=== PATIENT | female | born 1985 | race Caucasian/White ===

== ENCOUNTER 2019-11-29 08:40 | Emergency (ER) | payer MEDICAID, SELFPAY ==
[2019-11-29 08:49] VITALS: BP 133/74; PULSE 88; RESP 16; TEMP 36.8; O2SAT 100
--- NOTE | 2019-11-29 08:53 | ED_ITS ---
HPI - Female Genitourinary General Chief complaint: Abdominal Pain Stated complaint: abd pain,pos test Time Seen by Provider: 11/29/19 08:53 Source: patient Mode of arrival: ambulatory Limitations: no limitations History of Present Illness MD elicited complaint: pelvic pain Pertinent past history: other (reversal of tubal 5 months ago and now has pain told if this happened she needs to go to hospital to r/o ectopic) Onset (ago): day(s) (3) Location of symptoms: suprapubic Severity: moderate Female Urogenital Radiation: Suprapubic Quality of pain: cramping Consistency: constant Vaginal discharge: none Vaginal bleeding: none Urinary symptoms: Frequency Exacerbating factors: none Relieving factors: none Associated symptoms: abdominal pain and nausea Sexual activity: Yes Patient : Yes Possible : at home test positive Date of Last Menstrual Period: 11/02/19 Related Data : 4 Para: 4 Home Medications Medication Instructions Recorded Confirmed No Known Home Meds 11/29/19 11/29/19 Allergies Allergy/AdvReac Type Severity Reaction Status Date / Time No Known Allergies Allergy Mild NOT Verified 11/29/19 08:57 APPLICABLE Review of Systems Review of Systems: Constitutional : No Fever, No Chills ENT/Mouth : No sore throat, No Rhinorrhea Eyes: No Eye Pain, No Redness Cardiovascular : No Chest Pain, No SOB Respiratory : No Cough, No Sputum, No Wheezing Gastrointestinal : positive Nausea, No Vomiting, No Diarrhea, positive abdominal pain, Genitourinary : no irregular bleeding, No Dysuria, positive Urinary Frequency, positive pelvic pain Musculoskeletal : No Myalgias Skin : No rash Neuro : No Weakness, No Headache Psych : No Anxiety/Panic, No Depression Heme/Lymph: No bruising, No Lymphadenopathy Endocrine : No Polyuria, No Polydipsia All other systems reviewed and are negative PMFSH Past Medical History Surgical History (Updated 11/29/19 @ 08:54 by Spencer James) History of reversal of tubal ligation : 4 Para: 4 Date of Last Menstrual Period: 11/02/19 Social History Social History (Updated 11/29/19 @ 09:00 by Erendira Buckner DO) Alcohol intake: unknown Smoking Status: Never smoker Use of substances other than those prescribed or required for medical reasons: Unknown Advance Directives: No Advance Directives Information Provided: Yes Physical Exam Vital Signs: Vital Signs: Vital Signs Temp Pulse Resp BP Pulse Ox 11/29/19 11:37 74 18 136/83 11/29/19 10:20 85 16 141/79 H 100 11/29/19 08:49 98.3 F 88 16 133/74 100 Body Mass Index 20.0 Appearance: Alert. Oriented X3. No acute distress. Anxious Eyes: Pupils equal, round and reactive to light. ENT: Pharynx normal. Neck: Normal inspection. Neck supple. CVS: Normal heart rate and rhythm. Pulses normal. Respiratory: No respiratory distress. Breath sounds normal. Abdomen: Soft and very mild suprapubic ttp, no rebound or guarding Skin: Skin warm and dry. Normal skin color. Normal skin turgor. Extremities: No lower extremity edema. No calf ttp Neuro: Oriented X 3. No motor deficit. No sensory deficit. Course Reevaluation(s) Reevaluation #1: discussed with Dr. Vasquez follow up in 2 days for repeat quant and ectopic precautions, H/H stable, VS stable MDM - Female Genitourinary MDM Narrative Medical decision making narrative: 34 yo female just had LMP 11/01 who is s/p tubal reversal 5 months ago in [place] here with pain no bleeding concerned given recent faintly positive tests at home, worried she has ectopic at this time will need labs, US to evaluate for ectopic, IVF and tylenol, dispo per results and findings Lab Data Result diagrams: 11/29/19 09:07 11/29/19 09:07 Labs: Lab Results 11/29/19 11/29/19 11/29/19 Range/Units 09:07 09:07 09:07 WBC 6.5 (4.8-10.8) X10*3/uL RBC 4.25 (4.20-5.50) X10*6/uL Hgb 12.5 (12.0-16.0) g/dl Hct 37.9 (37-47) % MCV 89.2 (80-98) fL MCH 29.4 (27.0-33.0) pg MCHC 33.0 (31.0-35.0) g/dl RDW 12.8 (11.0-16.0) % Plt Count 232 (160-400) X10*3/uL MPV 9.2 L (9.4-12.3) fL Immature Gran % (Auto) 0.3 (0.0-0.4) % Neut % (Auto) 61.0 (45-73) % Lymph % (Auto) 29.4 (20-40) % [place] % (Auto) 8.1 (2-11) % Eos % (Auto) 0.9 (0-4) % Baso % (Auto) 0.3 (0-2) % Lymph # (Auto) 1.9 (1.2-4.9) X10*3/uL [place] # (Auto) 0.5 (0.1-1.2) X10*3/uL Eos # (Auto) 0.1 (0.0-0.4) X10*3/uL Baso # (Auto) 0.0 (0.0-0.2) X10*3/uL Abs Immat Gran (auto) 0.02 (0.00-0.03) X10*3/uL Absolute Neuts (auto) 4.0 (2.0-8.3) X10*3/uL Absolute Nucleated RBC 0.000 (0.0-0.012) X10*3/uL Nucleated RBC % (auto) 0.0 (0.0-0.2) /100WBC Hold Blue Top SEE NOTE Sodium 138 (135-145) mmol/L Potassium 3.8 (3.3-5.1) mmol/l Chloride 104 (96-108) mmol/L Carbon Dioxide 26 (22-29) mmol/L Anion Gap 12 (12-20) BUN 12 (9-16) mg/dL Creatinine 0.74 (0.5-1.4) mg/dL Estim Creat Clear Calc 93.8 Estimated GFR > 60 Random Glucose 95 (60-115) mg/dL Calcium 9.2 (8.4-10.2) mg/dL Magnesium 1.8 (1.6-2.6) mg/dL Total Bilirubin 1.0 (0.0-1.0) mg/dL Direct Bilirubin 0.3 (0.0-0.5) mg/dL AST 14 (5-31) U/L ALT 11 (0-31) U/L Alkaline Phosphatase 51 (39-117) U/L Total Protein 7.6 (6.5-8.0) g/dL Albumin 4.3 (3.5-5.0) g/dL Lipase 10 (8-78) U/L Beta HCG, Quant 46 mIU/mL Urine Color Urine Appearance Urine pH (5.0-8.0) Ur Specific [place] (1.005-1.025) Urine Protein (NEG-TRACE) MG/DL Urine Glucose (UA) (NEG) MG/DL Urine Ketones (NEG) MG/DL Urine Blood (NEG) Urine Nitrite (NEG) Ur Leukocyte Esterase (NEG) Urine RBC (0) /HPF Urine WBC (0-4) /HPF Ur Squamous Epith Cells /LPF Urine Bacteria /LPF Urine Mucus /LPF 11/29/19 Range/Units 09:23 WBC (4.8-10.8) X10*3/uL RBC (4.20-5.50) X10*6/uL Hgb (12.0-16.0) g/dl Hct (37-47) % MCV (80-98) fL MCH (27.0-33.0) pg MCHC (31.0-35.0) g/dl RDW (11.0-16.0) % Plt Count (160-400) X10*3/uL MPV (9.4-12.3) fL Immature Gran % (Auto) (0.0-0.4) % Neut % (Auto) (45-73) % Lymph % (Auto) (20-40) % [place] % (Auto) (2-11) % Eos % (Auto) (0-4) % Baso % (Auto) (0-2) % Lymph # (Auto) (1.2-4.9) X10*3/uL [place] # (Auto) (0.1-1.2) X10*3/uL Eos # (Auto) (0.0-0.4) X10*3/uL Baso # (Auto) (0.0-0.2) X10*3/uL Abs Immat Gran (auto) (0.00-0.03) X10*3/uL Absolute Neuts (auto) (2.0-8.3) X10*3/uL Absolute Nucleated RBC (0.0-0.012) X10*3/uL Nucleated RBC % (auto) (0.0-0.2) /100WBC Hold Blue Top Sodium (135-145) mmol/L Potassium (3.3-5.1) mmol/l Chloride (96-108) mmol/L Carbon Dioxide (22-29) mmol/L Anion Gap (12-20) BUN (9-16) mg/dL Creatinine (0.5-1.4) mg/dL Estim Creat Clear Calc Estimated GFR Random Glucose (60-115) mg/dL Calcium (8.4-10.2) mg/dL Magnesium (1.6-2.6) mg/dL Total Bilirubin (0.0-1.0) mg/dL Direct Bilirubin (0.0-0.5) mg/dL AST (5-31) U/L ALT (0-31) U/L Alkaline Phosphatase (39-117) U/L Total Protein (6.5-8.0) g/dL Albumin (3.5-5.0) g/dL Lipase (8-78) U/L Beta HCG, Quant mIU/mL Urine Color YELLOW Urine Appearance CLEAR Urine pH 6.0 (5.0-8.0) Ur Specific [place] 1.025 (1.005-1.025) Urine Protein NEG (NEG-TRACE) MG/DL Urine Glucose (UA) NEG (NEG) MG/DL Urine Ketones NEG (NEG) MG/DL Urine Blood 2+ H (NEG) Urine Nitrite NEG (NEG) Ur Leukocyte Esterase NEG (NEG) Urine RBC 5-9 H (0) /HPF Urine WBC 0 (0-4) /HPF Ur Squamous Epith Cells 2+ /LPF Urine Bacteria 1+ /LPF Urine Mucus 2+ /LPF Discharge Plan Discharge Clinical Impression: Abdominal pain affecting Ectopic Qualifiers: Location of ectopic : unspecified location Intrauterine status: unspecified Qualified Code(s): O00.90 - Unspecified ectopic without intrauterine Ovarian cyst Qualifiers: Laterality: right Qualified Code(s): N83.201 - Unspecified ovarian cyst, right side Patient Disposition: Home, Self-Care Instructions: Ectopic (DC), Ovarian Cyst (ED), Abdominal Pain in (ED) Additional Instructions: significant bleeding, increased pain, fainting dizziness, return immediately Prescriptions: No Action No Known Home Meds RF: 0 Referrals: Natalie Vasquez MD [Physician] - 2 days (repeat hcg testing) Stand Alone Forms: Work/School Release
--- NOTE | 2019-11-29 08:53 | US_ITS ---
EXAMINATION: ULTRASOUND OB CLINICAL INFORMATION: Positive test. Post tubal ligation reversal 5 months ago. HCG 46. COMPARISON: None TECHNIQUE: Transabdominal and transvaginal first trimester OB ultrasound. Transvaginal exam was performed for better visualization of the uterus and ovaries. FINDINGS: Uterus is normal in size and shape measures 10.8 x 4.9 x 4.8 cm in dimension. No focal uterine lesion is seen. Endometrial thickness is normal measuring 1.3 cm. There are nabothian cysts in the cervix. No intrauterine is seen. The right ovary measures 4.1 x 2.1 x 1.9 cm and contains a 2 x 1.3 x 1.2 cm complex cyst, question representing a corpus luteum. The left ovary is normal and measures 3.4 x 2.1 x 2.1 cm. There is a small amount of fluid in the pelvis. IMPRESSION: No intrauterine seen. This may be due to early gestational age. Small 2 x 1.3 x 1.2 cm complex right ovarian cyst probably representing a corpus luteum. Correlation with quantitative beta hCG and follow-up ultrasound exam to ensure development of intrauterine is recommended.
--- NOTE | 2019-11-29 09:09 | PC.NURSE ---
TRIAGED AT BEDSIDE, SEEN BY DR RAMIREZ, IV EST 20 G L AC. BLOODS DRAWN FROM IV ANS SENT TO LAB. PT UNABLE TO GIVE URINE AT THIS TIME
[2019-11-29 09:16] LABS: MANUAL DIFF FLAG NO
[2019-11-29] MEDS: 0.9 % Sodium Chloride 1,000 ML 999 ML IVCONT (09:18)
[2019-11-29] MEDS: Acetaminophen 325 MG TABLET 650 MG PO (09:18)
[2019-11-29 09:22] LABS: Basophils Percent Auto 0.3 % (0-2); Eosinophils Absolute Auto 0.1 X10*3/uL (0.0-0.4); Eosinophils Percent Auto 0.9 % (0-4); Hematocrit 37.9 % (37-47); Hemoglobin 12.5 g/dl (12.0-16.0); Imm Gran Abs Auto 0.02 X10*3/uL (0.00-0.03); Imm Gran Pct Auto 0.3 % (0.0-0.4); Lymphocytes Absolute Auto 1.9 X10*3/uL (1.2-4.9); Lymphocytes Percent Auto 29.4 % (20-40); Mean Corpuscular Hemoglobin 29.4 pg (27.0-33.0); Mean Corpuscular Volume 89.2 fL (80-98); Mean Platelet Volume 9.2 fL (9.4-12.3); Monocytes Absolute Auto 0.5 X10*3/uL (0.1-1.2); Monocytes Percent Auto 8.1 % (2-11); Platelet Count 232 X10*3/uL (160-400); Red Blood Count 4.25 X10*6/uL (4.20-5.50); Red Cell Distribution Width 12.8 % (11.0-16.0); White Blood Count 6.5 X10*3/uL (4.8-10.8)
[2019-11-29 09:39] LABS: Alanine Aminotransferase 11 U/L (0-31); Albumin Level 4.3 g/dL (3.5-5.0); Alkaline Phosphatase 51 U/L (39-117); Anion Gap 12 (12-20); Aspartate Amino Transferase 14 U/L (5-31); Bilirubin Direct 0.3 mg/dL (0.0-0.5); Blood Urea Nitrogen 12 mg/dL (9-16); Calcium 9.2 mg/dL (8.4-10.2); Carbon Dioxide 26 mmol/L (22-29); Chloride 104 mmol/L (96-108); Creatinine Clr Calc Pharmacy 93.8; Estimated Glomerular Filt Rate > 60; Glucose Random 95 mg/dL (60-115); Lipase 10 U/L (8-78); Magnesium 1.8 mg/dL (1.6-2.6); Potassium 3.8 mmol/l (3.3-5.1); Sodium 138 mmol/L (135-145); Total Protein 7.6 g/dL (6.5-8.0)
[2019-11-29 09:42] LABS: Glucose Urine UA NEG (NEG); Leukocyte Esterase Urine NEG (NEG); Nitrite Urine NEG (NEG); Specific Gravity - Urine 1.025 (1.005-1.025); Urine Blood 2+ (NEG); Urine Ketones NEG (NEG); Urine Protein NEG (NEG-TRACE)
[2019-11-29 09:44] LABS: Appearance Urine CLEAR; Color Urine YELLOW
[2019-11-29 09:46] LABS: HCG Quantitative 46 mIU/mL
[2019-11-29 09:52] LABS: Bacteria Urine 1+ /LPF; Mucus Urine 2+ /LPF; Squamous Epithelial Cell Urine 2+ /LPF; WBC Urine 0 /HPF (0-4)
[2019-11-29 10:20] VITALS: BP 141/79; PULSE 85; RESP 16; O2SAT 100
[2019-11-29 11:37] VITALS: BP 136/83; PULSE 74; RESP 18
[2019-11-29 12:21] VITALS: BP 131/82; PULSE 75
== END 2019-11-29 12:25 | disposition home or self-care (01) ==
PROVIDERS: Emergency Provider Emergency Medicine; PCP Nurse Practitioner Family
DX: N83.201 Unspecified ovarian cyst, right side (principal); R10.2 Pelvic and perineal pain
CPT/HCPCS: 36415; 76801; 76817; 80048; 80076; 81001; 83690; 83735; 84702; 85025; 96360; 99284

== ENCOUNTER 2019-11-30 09:30 | Outpatient (REF) | payer MEDICAID, SELFPAY ==
[2019-11-30 10:45] LABS: HCG Quantitative 95 mIU/mL
== END 2019-11-30 09:31 | disposition home or self-care (01) ==
LOC: HO.LAB 09:30
PROVIDERS: PCP Nurse Practitioner Family; Visit Provider Obstetrics & Gynecology
DX: O36.80X0 Pregnancy with inconclusive fetal viability, not applicable or unspecified (principal)
CPT/HCPCS: 84702

== ENCOUNTER → 2019-12-01 10:11 | Outpatient (BNVA) | payer MEDICAID, SELFPAY | PROVIDERS: PCP Nurse Practitioner Family; Visit Provider Obstetrics & Gynecology | DX: O36.80X0 Pregnancy with inconclusive fetal viability, not applicable or unspecified (principal) | CPT/HCPCS: 99213 ==

== ENCOUNTER 2020-01-09 18:44 | Emergency (ER) | payer MEDICAID, SELFPAY ==
--- NOTE | 2020-01-09 19:27 | ED_ITS ---
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 MD elicited complaint: abdominal pain Pertinent past history: none Onset (ago): day(s) (1) Pain Consistency: intermittent Location: suprapubic Severity: mild Quality: cramping Radiation: none Exacerbating factors: nothing Relieving factors: nothing Related Data Home Medications Medication Instructions Recorded Confirmed No Known Home Meds 11/29/19 11/29/19 Allergies Allergy/AdvReac Type Severity Reaction Status Date / Time No Known Allergies Allergy Mild NOT Verified 11/29/19 08:57 APPLICABLE Review of Systems Review of Systems REVIEW OF SYSTEMS: Pertinent positives and negatives are stated above in the history. GEN: no fevers, chills, fatigue HEENT: no nasal congestion, sore throat, ear pain NEURO: no headache, dizziness, focal weakness PULM: no cough, shortness of breath CV: no chest pain, palpitations, LE edema ABD: no nausea, vomiting, diarrhea : no dysuria, urgency, frequency SKIN: no rash ROS otherwise negative x 10 Physical Exam Vital Signs: Vital Signs: Last Vital Signs Temp 98.9 F 01/09/20 20:56 Pulse 72 01/09/20 20:56 Resp 18 01/09/20 20:56 BP 106/64 01/09/20 20:56 Pulse Ox 99 01/09/20 20:56 Body Mass Index 21.2 Appearance: Alert. Oriented X3. No acute distress. Eyes: Pupils equal, round and reactive to light. ENT: Pharynx normal. Neck: Normal inspection. Neck supple. CVS: Normal heart rate and rhythm. Pulses normal. Respiratory: No respiratory distress. Breath sounds normal. Abdomen: Soft and Mild tenderness suprapubic area no rebound tenderness or guarding. Skin: Skin warm and dry. Normal skin color. Normal skin turgor. Extremities: No lower extremity edema. Good range of movement Neuro: Oriented X 3. No motor deficit. No sensory deficit. MDM - Abdominal Pain MDM Narrative Medical decision making narrative: patient 10 weeks with slight spotting hCG level was appropriate to gestation age no more bleeding in the ER patient just had a sonogram done 2 weeks ago which showed IUP patient not in any distress. Patient advised to follow-up with her OB in 2 days to repeat her hCG level or report to the ER if increased vaginal bleeding Medical Records Attestation: I reviewed the patient's medical records. Lab Data Attestation: I reviewed the patient's lab results. Labs: Lab Results 01/09/20 01/09/20 Range/Units 20:21 20:21 Beta HCG, Quant [id number] mIU/mL Urine Color YELLOW Urine Appearance CLEAR Urine pH 7.0 (5.0-8.0) Ur Specific [place] 1.020 (1.005-1.025) Urine Protein NEG (NEG-TRACE) MG/DL Urine Glucose (UA) NEG (NEG) MG/DL Urine Ketones NEG (NEG) MG/DL Urine Blood TRACE (NEG) Urine Nitrite NEG (NEG) Ur Leukocyte Esterase NEG (NEG) Urine RBC 0-2 (0) /HPF Urine WBC 0-2 (0-4) /HPF Ur Squamous Epith Cells TRACE /LPF Amorphous Sediment 1+ /LPF Urine Bacteria NONE /LPF Discharge Plan Discharge Clinical Impression: Threatened in first trimester Patient Disposition: Home, Self-Care Instructions: Threatened Miscarriage (ED) Additional Instructions: follow-up with your field pipe lines supervisor in 2 days . Report to the ER if increased vaginal bleeding or pain Prescriptions: No Action No Known Home Meds RF: 0 Interventions: ED Discharge Assessment Last Done: 01/09/20 22:16 Discharge Date/Time: 01/09/20 22:18 [facility] Past Medical History Surgical History History of reversal of tubal ligation Family History Family History Maternal Grandmother Diabetes Father Asthma Mother HTN (hypertension) Social History Social History Alcohol intake: never Smoking Status: Never smoker Use of substances other than those prescribed or required for medical reasons: No Advance Directives: No
[2020-01-09 19:34] VITALS: BP 129/76; PULSE 73; RESP 16; TEMP 36.3; O2SAT 100; BMI 21.2
[2020-01-09 20:30] LABS: Glucose Urine UA NEG (NEG); Leukocyte Esterase Urine NEG (NEG); Nitrite Urine NEG (NEG); Urine Blood TRACE (NEG); Urine Ketones NEG (NEG); Urine Protein NEG (NEG-TRACE)
[2020-01-09 20:31] LABS: Appearance Urine CLEAR; Color Urine YELLOW
[2020-01-09 20:36] LABS: Amorphous Sediment Urine 1+ /LPF; RBC Urine 0-2 /HPF (0); Squamous Epithelial Cell Urine TRACE /LPF; WBC Urine 0-2 /HPF (0-4)
[2020-01-09 20:56] VITALS: BP 106/64; PULSE 72; RESP 18; TEMP 37.2; O2SAT 99
[2020-01-09] MEDS: Acetaminophen 325 MG TABLET 650 MG PO (21:23)
== END 2020-01-09 22:18 | disposition home or self-care (01) ==
PROVIDERS: Emergency Provider Internal Medicine; PCP Nurse Practitioner Family
DX: O20.0 Threatened abortion (principal); Z3A.10 10 weeks gestation of pregnancy
CPT/HCPCS: 81001; 84702; 99283; 99284

== ENCOUNTER 2020-12-20 13:01 | Outpatient (REF) | payer MEDICAID, SELFPAY ==
--- NOTE | ~2020-12-20 | CT_ITS ---
EXAMINATION: CT HEAD WITHOUT CONTRAST CLINICAL INFORMATION: Headaches COMPARISON: None TECHNIQUE: Contiguous axial imaging was performed from the skull base to vertex without intravenous administration of contrast. This CT examination was performed using dose optimization techniques as appropriate, variously including the following: *Automated exposure control *Adjustment of mA and/or kV according to patient size (this includes techniques or standardized protocols for targeted exams where dose is matched to indication/reason for exam; i.e. extremities or head) *Use of iterative reconstruction technique DLP: 681 mGy-cm FINDINGS: There is no evidence of acute intracranial hemorrhage or territorial infarction. No abnormal mass effect or midline shift is seen. Jain to white matter differentiation is well preserved. No extra-axial fluid collections are identified. The ventricles are normal in size. There is no abnormal attenuation within the brain parenchyma. The osseous structures and soft tissues are normal. The mastoid air cells and visualized portions of the paranasal sinuses are well aerated. CT/CT head/brain wo con IMPRESSION: No acute intracranial pathology. Normal CT imaging appearance of the brain.
== END 2020-12-20 13:02 | disposition home or self-care (01) ==
LOC: HO.CT 13:01
PROVIDERS: PCP Nurse Practitioner; Visit Provider Emergency Medicine
DX: R03.0 Elevated blood-pressure reading, without diagnosis of hypertension (principal); R20.0 Anesthesia of skin
CPT/HCPCS: 70450

== ENCOUNTER 2022-09-12 11:58 | Outpatient (REF) | payer MEDICAID, SELFPAY ==
[2022-09-12 13:22] LABS: MANUAL DIFF FLAG NO
[2022-09-12 13:37] LABS: Basophils Percent Auto 0.6 % (0-2); Eosinophils Absolute Auto 0.1 X10*3/uL (0.0-0.4); Eosinophils Percent Auto 2.1 % (0-4); Hematocrit 29.5 % (37.0-47.0); Hemoglobin 8.6 g/dl (12.0-16.0); Imm Gran Abs Auto 0.01 X10*3/uL (0.00-0.03); Imm Gran Pct Auto 0.2 % (0.0-0.4); Lymphocytes Percent Auto 36.8 % (20-40); Mean Corpuscular HGB Conc 29.2 g/dl (31.0-35.0); Mean Corpuscular Hemoglobin 23.2 pg (27.0-33.0); Mean Corpuscular Volume 79.5 fL (80.0-98.0); Mean Platelet Volume 9.3 fL (9.4-12.3); Monocytes Absolute Auto 0.5 X10*3/uL (0.1-1.2); Monocytes Percent Auto 9.6 % (2-11); Neutrophils Absolute Auto 2.7 x10*3/uL (2.0-8.3); Neutrophils Percent Auto 50.7 % (45-73); Platelet Count 362 X10*3/uL (160-400); Red Blood Count 3.71 X10*6/uL (4.20-5.50); Red Cell Distribution Width 16.3 % (11.0-16.0); White Blood Count 5.3 X10*3/uL (4.8-10.8)
[2022-09-12 14:43] LABS: Cholesterol 178 mg/dL; HDL Cholesterol 52 mg/dL; LDL Cholesterol Calculated 98 mg/dl; Triglycerides 143 mg/dL
== END 2022-09-12 11:59 | disposition home or self-care (01) ==
LOC: HO.HHCL 11:58
PROVIDERS: Visit Provider Nurse Practitioner Family
DX: Z00.00 Encounter for general adult medical examination without abnormal findings (principal)
CPT/HCPCS: 36415; 80061; 85025

== ENCOUNTER 2022-10-22 09:40 | Outpatient (REF) | payer MEDICAID, SELFPAY ==
[2022-10-22 12:40] LABS: Iron 21 mcg/dL (30-160); Percent Iron Saturation 6 % (15-50); Total Iron Binding Capacity 335 mcg/dL (228-428); Unsaturated Iron Binding 314 ug/dL
[2022-10-22 13:06] LABS: Ferritin 15 ng/mL (10-122)
== END 2022-10-22 09:41 | disposition home or self-care (01) ==
LOC: HO.HHCL 09:40
PROVIDERS: Visit Provider Nurse Practitioner Family
DX: E61.1 Iron deficiency (principal)
CPT/HCPCS: 36415; 82728; 83540

== ENCOUNTER 2023-02-20 10:28 | Outpatient (REF) | payer MEDICAID, SELFPAY | END 2023-02-20 10:29 | disposition home or self-care (01) | LOC: HO.HHCL 10:28 | PROVIDERS: Visit Provider Nurse Practitioner Family | DX: D50.8 Other iron deficiency anemias (principal) | CPT/HCPCS: 36415; 83540; 85025 ==

== ENCOUNTER 2023-05-09 23:09 | Emergency (ER) | payer MEDICAID, SELFPAY ==
[2023-05-09 23:36] VITALS: BP 125/75; PULSE 77; RESP 18; TEMP 36.8; O2SAT 97; BMI 22.8
--- NOTE | 2023-05-09 23:50 | MHC.EDTECH ---
Sars/flu/rsv and strep obtained and sent to lab.
[2023-05-09 23:55] LABS: IDNOW Serial# 08D9AD1C; Strep A Nucleic Acid Negative (Negative)
[2023-05-09 23:59] VITALS: BP 120/57; PULSE 74; RESP 14; TEMP 36.9; O2SAT 97
[2023-05-10 00:18] LABS: Influenza A PCR POSITIVE (Negative); Influenza B PCR NEGATIVE (Negative); Resp Syncy Virus RNA Qual PCR NEGATIVE (Negative); SARS COV2 PCR INHOUSE NEGATIVE (Negative)
--- NOTE | 2023-05-10 00:26 | ED_ITS ---
HPI - URI/Sore Throat General Chief Complaint: Upper Respiratory Symptoms Stated Complaint: flu like Time Seen by Provider: 05/10/23 00:03 Source: patient Mode of arrival: ambulatory Limitations: no limitations History of Present Illness HPI Narrative: Patient comes to the emergency room complaining of 3 days of sore throat, nausea, chills. Patient states that she has 2 children at home with the same symptoms, both have strep and influenza. Patient denies chest pain or shortness of breath. Related Data Previous Rx's Medication Instructions Recorded ibuprofen 600 mg tablet 600 mg PO QID PRN fever or pain 05/10/23 #20 tabs oseltamivir 75 mg capsule (Tamiflu) 75 mg PO Q12H 5 days #10 caps 05/10/23 Allergies Allergy/AdvReac Type Severity Reaction Status Date / Time No Known Allergies Allergy Mild NOT Verified 11/29/19 08:57 APPLICABLE Review of Systems Review of Systems: Constitutional : No Weight loss, complaining of chills, No Night Sweats, No Fatigue, No Malaise ENT/Mouth : No Hearing loss, No Ear Pain, No Nasal Congestion, No Sinus Pain, No Hoarseness, complaining of sore throat, No Rhinorrhea, No Swallowing Difficulty Eyes: No Eye Pain, No Swelling, No Redness, No Foreign Body, No Discharge, No Vision Changes Cardiovascular : No Chest Pain, No SOB, No Dyspnea on Exertion, No Orthopnea, No Edema, No Palpitations Respiratory : No Cough, No Sputum, No Wheezing, No Smoke Exposure, No Dyspnea Gastrointestinal : No Nausea, No Vomiting, No Diarrhea, No Constipation, No abdominal Pain, No Hematochezia, No Melena Genitourinary : no irregular bleeding, No Dysuria, No Urinary Frequency, No Hematuria, No Urinary Incontinence, No Urgency, No Flank Pain, No Urinary Flow Changes, No Hesitancy Musculoskeletal : No joint pain, No Myalgias, No Joint Swelling Skin : No Skin Lesions, No rash Neuro : No Weakness, No Numbness, No Paresthesias, No Loss of Consciousness, No Dizziness, No Headache Psych : No Anxiety/Panic, No Depression, No SI/HI/AH/VH, No Social Issues, Heme/Lymph: No Bruising, No Bleeding,No Lymphadenopathy Endocrine : No Polyuria, No Polydipsia, No Temperature Intolerance PMFSH Past Medical History Surgical History History of reversal of tubal ligation Family History Family History Maternal Grandmother Diabetes Father Asthma Mother HTN (hypertension) Social History Social History Alcohol intake: never Smoked in Last 30 Days: No Use of substances other than those prescribed or required for medical reasons: No Advance Directives: No Advance Directives Information Provided: No Physical Exam Vital Signs: Vital Signs: Last Vital Signs Temp 98.4 F 05/09/23 23:59 Pulse 74 05/09/23 23:59 Resp 14 05/09/23 23:59 BP 120/57 L 05/09/23 23:59 Pulse Ox 97 05/09/23 23:59 O2 Del Method Room Air 05/09/23 23:59 BMI result Body Mass Index 22.8 Const: Other: Appearance: Alert. Oriented X3. No acute distress. Eyes: Pupils equal, round and reactive to light. ENT: Erythematous oropharynx, no exudates, no abscess Neck: Normal inspection. Neck supple. No lymph nodes noted. No crepitus CVS: Normal heart rate and rhythm. Pulses normal. Normal S1 and S2 Respiratory: No respiratory distress. Breath sounds normal. No Wheezing. No rales Abdomen: Soft and nontender. No rigidity. No distention. Skin: Skin warm and dry. Normal skin color. Normal skin turgor. Extremities: No lower extremity edema. No Lacerations. No Rash Neuro: Oriented X 3. No motor deficit. No sensory deficit. Moving all extremities. No slurred speech. CN 2 through 12 grossly intact Psych: calm, cooperative, normal affect Medical Decision Making Medical Decision Making MDM Narrative: My interpretation of labs, positive for influenza A. -I discussed the labs with the patient, given the choice of treating at home symptomatically versus Tamiflu, patient would like to try Tamiflu. Patient aware that they may cause nausea vomiting diarrhea. Patient has throat pain, no trouble breathing or handling secretions. For symptomatic treatment, patient was given a dose of p.o. Decadron and viscous lidocaine Lab Data [facility] Lab Attestation statement: I reviewed the patient's lab results. Labs: Lab Results 03/23/24 Range/Units 23:36 Influenza Type A (PCR) POSITIVE A (Negative) Influenza Type B (PCR) NEGATIVE (Negative) RSV RNA Qual (PCR) NEGATIVE (Negative) SARS-CoV-2 RNA (RT-PCR) NEGATIVE (Negative) S. pyogenes GrpA FLOYD Negative (Negative) Discharge Plan Discharge Clinical Impression: Influenza, Acute viral pharyngitis Patient Disposition: Home, Self-Care Instructions: Influenza (ED) Additional Instructions: Please follow-up with your primary care physician tomorrow. If you have any worsening or new symptoms, please return to the emergency room or call 911 Prescriptions: New oseltamivir [Tamiflu] 75 mg capsule 75 mg PO Q12H 5 Days Qty: 10 0RF ibuprofen 600 mg tablet 600 mg PO QID PRN (Reason: fever or pain) Qty: 20 0RF
[2023-05-10] MEDS: Lidocaine HCl Viscous 2 % 15 ML SOLUTION MUCOUS MEM (00:51)
[2023-05-10] MEDS: dexAMETHasone sod phosphate 4 MG/ML VIAL 6 MG IVPUSH (00:51)
[2023-05-10 01:08] VITALS: BP 120/62; PULSE 70; RESP 18; TEMP 36.8; O2SAT 98
== END 2023-05-10 01:09 | disposition home or self-care (01) ==
PROVIDERS: Emergency Provider Emergency Medicine; PCP Nurse Practitioner Family
DX: J09.X2 Influenza due to identified novel influenza A virus with other respiratory manifestations (principal); Z11.52 Encounter for screening for COVID-19; Z20.828 Contact with and (suspected) exposure to other viral communicable diseases
CPT/HCPCS: 0241U; 87651; 99284; J1100

== ENCOUNTER 2024-05-11 09:31 | Outpatient (REF) | payer MEDICAID, SELFPAY ==
[2024-05-11 11:14] LABS: MANUAL DIFF FLAG NO
[2024-05-11 11:18] LABS: Basophils Percent Auto 0.4 % (0-2); Eosinophils Absolute Auto 0.1 X10*3/uL (0.0-0.4); Eosinophils Percent Auto 1.3 % (0-4); Hematocrit 36.2 % (37.0-47.0); Hemoglobin 12.1 g/dl (12.0-16.0); Imm Gran Abs Auto 0.01 X10*3/uL (0.00-0.03); Imm Gran Pct Auto 0.2 % (0.0-0.4); Lymphocytes Absolute Auto 1.6 X10*3/uL (1.2-4.9); Lymphocytes Percent Auto 33.6 % (20-40); Mean Corpuscular HGB Conc 33.4 g/dl (31.0-35.0); Mean Corpuscular Hemoglobin 28.5 pg (27.0-33.0); Mean Corpuscular Volume 85.4 fL (80.0-98.0); Mean Platelet Volume 9.4 fL (9.4-12.3); Monocytes Absolute Auto 0.4 X10*3/uL (0.1-1.2); Monocytes Percent Auto 7.9 % (2-11); Neutrophils Absolute Auto 2.7 x10*3/uL (2.0-8.3); Neutrophils Percent Auto 56.6 % (45-73); Platelet Count 283 X10*3/uL (160-400); Red Blood Count 4.24 X10*6/uL (4.20-5.50); Red Cell Distribution Width 13.4 % (11.0-16.0); White Blood Count 4.8 X10*3/uL (4.8-10.8)
[2024-05-11 11:53] LABS: HBS Num1 89.86 mIU/mL (0-7.99); HBc Num1 0.06 S/CO (0.00-0.79); HIV AB/AG Nonreactive (Nonreactive); HIV Num 1 0.07 S/CO (0.00-0.99); Hepatitis A Antibody IgM 0.23 Index (0-0.79); Hepatitis B Core Antibody Nonreactive (Nonreactive); Hepatitis B Surface Antigen Negative (Negative); ~HepC Num1 0.18 S/CO (0.00-0.79); ~Hepatitis A Antibody IgM Nonreactive (Nonreactive); ~Hepatitis B Surface Antibody REACTIVE (Nonreactive); ~Hepatitis C Antibody Nonreactive (Nonreactive)
[2024-05-11 11:54] LABS: Syphilis Screen Nonreactive (Nonreactive)
[2024-05-11 11:55] LABS: Alanine Aminotransferase 16 U/L (0-31); Albumin Level 4.2 g/dL (3.5-5.0); Alkaline Phosphatase 74 U/L (39-117); Anion Gap 8 (12-20); Aspartate Amino Transferase 17 U/L (5-31); Bilirubin Total 0.7 mg/dL (0.0-1.0); Blood Urea Nitrogen 13 mg/dL (9-16); Calcium 9.3 mg/dL (8.4-10.2); Carbon Dioxide 30 mmol/L (22-29); Chloride 106 mmol/L (96-108); Cholesterol 172 mg/dL (<200); Estimated Glomerular Filt Rate > 60; Glucose Random 80 mg/dL (60-115); HDL Cholesterol 52 mg/dL (>40); LDL Cholesterol Calculated 98 mg/dL (<100); Potassium 3.9 mmol/L (3.3-5.1); Sodium 140 mmol/L (135-145); Total Protein 7.6 g/dL (6.5-8.0); Triglycerides 114 mg/dL (<150)
[2024-05-11 11:56] LABS: TSH reflex Free T4 1.75 uIU/mL (0.32-4.0)
[2024-05-11 12:04] LABS: Vitamin B12 469 pg/mL (200-900)
[2024-05-11 13:34] LABS: Reflex LDLD? No
[2024-05-14 09:48] LABS: TS Negative Control Passed; TS Panel A 1; TS Panel B 0; TS Positive Control Passed; TSpotTB Negative (Negative)
== END 2024-05-11 09:32 | disposition home or self-care (01) ==
LOC: HO.HHCL 09:31
PROVIDERS: Visit Provider Internal Medicine
DX: Z00.00 Encounter for general adult medical examination without abnormal findings (principal); I10 Essential (primary) hypertension; G43.109 Migraine with aura, not intractable, without status migrainosus
CPT/HCPCS: 36415; 80053; 80061; 82607; 82746; 84443; 85025; 86481; 86704; 86706; 86709; 86780; 86803; 87340; 87389

== ENCOUNTER 2024-09-13 13:03 | Outpatient (REF) | payer MEDICAID, SELFPAY ==
--- OUTSIDE RECORDS SUMMARY | 2024-09-13 13:50 | XMS_ITS | Encounter Summary ---
Author Organization [employer] Address [address] [place] [address] Care Team Providers Care [employer] Setter Name Role Phone Caty GabrielP Primary Care Provider [phone] Katty Spears NP Primary Care Provider [phone] Encounter Details Date Type Department Care Team ([facility] st Contact Info) Description 01/12/2023 Abstract [facility] [address] [place] [address] Estrellita Lugo Social History Tobacco Use Types Packs/Day Years Used Date Smoking Tobacco: Never Passive Smoke Exposure: Never Smokeless Tobacco: Never Alcohol Use Standard Drinks/Week Comments Not Currently 0 (1 standard drink = 0.6 oz pur e alcohol) occasional / socially Depression Answer Date Recorded Patient Health Questionnaire-9 Score 9 09/12/2022 Housing Stability Answer Date Recorded What is your housing situation today? I have speedy mon 12/02/[address] you li ve. Do you have problems with any of the following? None of the above 12/02/2022 Food Insecurity Answer Date Recorded Within the past 12 months, y ou worried that your food would run out before you got money to buy more: Never True 12/02/2022 Within the past 12 months,th e food you bought just didn't last and you didn't have enough money to get more: Never True Transportation Answer Date Recorded In the past 12 months, has l ack of transportation kept you from medical appts, meetings, work or from getting things needed for daily living? No 12/02/2022 Utilities Answer Date Recorded In the past 12 months, has t he electric, gas, oil or water company threatened to shut off services in your home? No 12/02/2022 Depression Answer Date Recorded Patient Health Questionnaire-2 Score 0 01/02/2023 Comments No Sex and Gender Information Value Date Recorded Sex Assigned at Female 12/16/2021 10:14 AM EDT Legal Sex Female 10:14 AM EDT Gender Identity Female 12/16/2021 10:14 AM EDT Sexual Orientation Straight 12/16/2021 10 :14 AM EDT documented as of this encounter Plan of Treatment Upcoming Encounters Date Type Department Care Team (Late st Contact Info) Description 10/05/2024 1:30 PM EDT Office Visit [facility] [address], [place] [id number] Hiram Ruiz, DMD [address] [place] [address] 10/14/2024 10:15 AM EDT Office Visit [facility] [address] [place] [address] Katty Spears, JAMESON [address] [place] [address] 11/09/2024 10:00 AM EDT Office Visit [facility] [address] [place] [address] Sera Bates documented as of this encounter Procedures Procedure Name Priority Date/Time Associated Diagnosis Comments PAP/HPV Routine 09/21/2019 documented in this encounter Results * Pap Smear (09/21/2019) Pap Negative for intraephithelial lesion or malignancy Negative for intraephithelial lesion or malignancy, Other HPV Undetected Undetected, Indeterminate, Quantitative, Not Detected us Historical Provider HEALTH MAINTENANCE Final Result documented in this encounter Visit Diagnoses Not on filedocumented in this encounter Additional Health Concerns Assessment Noted Time PHQ-9 Depression Total Score: 9 09/13/19 23 11:23 AM EDT documented as of this encounter Care Teams [employer] Setter Relationship Specialty Start Date End Date Caty Gabriel FNP [address] [place] [address] PCP - General Family Medicine 06/03/22 10/19/23 Katty Spears NP [address] [place] [address] PCP - General Family Medicine 10/20/23 documented as of this encounter
--- OUTSIDE RECORDS SUMMARY | 2024-09-13 13:50 | XMS_ITS | Clinical Summary ---
Author Organization [facility] Address [address] [facility] [address] [place] [address] Phone Care Team Providers Care Tree Worker Name Role Phone Sunil Ly MD Primary Care Provider [phone] Allergies No known active allergies Medications ACNE TREATMENT, BENZOYL PEROX, 10 % gel APPLY A THIN LAYER TO THE AFFECTED AREA EVERY DAY 5 8 Active clindamycin (CLEOCIN T) 1 % lotion APPLY SMALL AMOUNT TO FACE IN THE MORNING 2 8 Active tretinoin (RETIN-A) 0.05 % cream APPLY A PEA SIZED AMOUNT TO THE FACE ALTERNATE WITH TRETINOIN 0.025 EVERY 2-3 NIGHTS 2 8 Active diclofenac sodium (VOLTAREN) 75 MG EC tablet Take 1 tablet (75 mg total) by mouth 2 (two) times a day. 60 tablet 2 8 Active magnesium citrate solution Drink half the bottle, wait 30-60 minutes if no bowel movement, drink the other half of the bottle. 295 mL 8 Active Active Problems Problem Noted Date Diagnosed Date Right hip pain 05/06/2017 Family History Medical History Relation Comments No Known Problems Brother No Known Problems Father No Known Problems Maternal Aunt No Known Problems Maternal Grandfather No Known Problems Maternal Grandmother No Known Problems Maternal Uncle No Known Problems Mother No Known Problems Paternal Aunt No Known Problems Paternal Grandfather No Known Problems Paternal Grandmother No Known Problems Paternal Uncle No Known Problems Sister Cancer Unspecified Diabetes Unspecified Infl. arthritis Unspecified Clotting disorder Neg Hx Collagen disease Neg Hx Depression Neg Hx Dislocations Neg Hx Gout Neg Hx Osteoporosis Neg Hx Scoliosis Neg Hx Relation Status Comments Brother Father Maternal Aunt Maternal Grandfather Maternal Grandmother Maternal Uncle Mother Paternal Aunt Paternal Grandfather Paternal Grandmother Paternal Uncle Sister Unspecified Social History Tobacco Use Types Packs/Day Years Used Date Smoking Tobacco: Never Smokeless Tobacco: Never Alcohol Use Standard Drinks/Week Comments Yes 0 (1 standard drink = 0.6 oz pur e alcohol) Education Answer Date Recorded Are you interested in more education? Not on chrissy e 06/13/2022 Are you concerned about learning? Not on file 06/13/2022 No 06/13/2022 No 06/13/2022 Digital Access Answer Date Recorded No 07/12/2022 No 07/12/2022 No 07/12/2022 Reliable internet access at home? Not on file 07/12/2022 Device with a working camera? Not on file Comments Unknown Sex and Gender Information Value Date Recorded Sex Assigned at Not on file Legal Sex Female 10:16 AM EST Gender Identity Not on file Sexual Orientation Not on file Last Filed Vital Signs Vital Sign Reading Time Taken Comments Blood Pressure 132/65 05/20/2017 8:24 PM EDT Pulse 71 05/20/2017 8:24 PM EDT Temperature 36.7 C (98.1 F) 05/20/2017 7:53 PM EDT Respiratory Rate 17 05/20/2017 8:24 PM EDT Oxygen Saturation 100% 05/20/2017 7:53 PM EDT Inhaled Oxygen Concentration - - Weight 54.4 kg (120 lb) 05/20/2017 6:33 PM EDT Height 165.1 cm (5' 5 ) 05/20/2017 6:33 PM EDT Body Mass Index 19.97 05/20/2017 6:33 PM EDT Plan of Treatment Health Maintenance Due Date Last Done Comments DEPRESSION SCREENING 1999 HEPATITIS C SCREENING 2005 HIV ONE-TIME SCREENING (18-6 5 YEARS) 2005 PAP SMEAR 2008 COVID-19 VACCINE (2023-2 5 season) 2023 09/25/2020, 09/05/2020 Adult Td,Tdap Booster 05/21/2030 05/21/2020 , 10/25/2014, 04/25/1999 HIB VACCINES Completed 03/30/1989 SMOKING STATUS SCREENING (On ce After 26 Yrs) Completed 05/11/2017 HEPATITIS A VACCINES Aged Out No long er eligible based on patient's age to complete this topic MENINGOCOCCAL VACCINES (ACWY) Aged Out No longer eligible based on patient's age to complete this topic MENINGOCOCCAL VACCINES (B) Aged Out N o longer eligible based on patient's age to complete this topic PNEUMOCOCCAL VACCINES (0-49 years) Aged Out No longer eligible b ased on patient's age to complete this topic Medical Devices Not on file Insurance [facility] C3 ACO [facility] C3 ACO [facility] [address] [place] [address] [place] [address] [place] [address] [place] [address] C3 ACO [facility] C3 ACO [facility] C3 ACO [facility] C3 ACO [facility] C3 ACO Care Teams Tree Worker Relationship Specialty Start Date End Date Sunil Ly MD [address] [place] [id number] PCP - General Pediatrics 05/20/17 Additional Source Comments The information contained in this document represents components of the legal health record. It is not the complete legal health record.[facility]
== END 2024-09-13 13:04 | disposition home or self-care (01) ==
LOC: HO.HHCLNP 13:03
PROVIDERS: Visit Provider Nurse Practitioner Family
DX: J02.9 Acute pharyngitis, unspecified (principal); R30.0 Dysuria
CPT/HCPCS: 87070; 87086

== ENCOUNTER 2024-11-17 11:31 | Outpatient (REF) | payer MEDICAID, SELFPAY ==
--- OUTSIDE RECORDS SUMMARY | 2024-11-16 15:20 | XMS_ITS | Encounter Summary ---
Author Organization [employer] Address [address] [facility] 7[address] [place] [address] Care Team Providers Care Fine Craft Artist Name Role Phone Katty Spears NP Primary Care Provider [phone] Reason for Referral * Consultation (Routine) - Closed Specialty Diagnoses / Procedures Referred By Contraad t Referred To Contact Pain Medicine Diagnoses Right leg numbness Acute bilateral low back pain without sciatica Amandeep Nassar MD [address] [place] [address] Phone: tel: fax: [facility] [address] [facility] [address] [place] [address] Phone: tel: fax: Referral ID Status Reason Start Date Expiration Date V isits Requested Visits Authorized [id number] Closed Specialty Services Required 11/17/2024 11/17/2025 6 6 Reason for Visit * Reason Comments Shortness of Breath left sided chest pain Left lower ext numbness Encounter Details Date Type Department Care Team (Late st Contact Info) Description 11/16/2024 3:20 PM EDT Office Visit [facility] [address] [place] [address] [phone] Amandeep Nassar MD [address] [place], [place] [phone] Chest pain, unspecified type (Primary Dx); Right leg numbness; Acute bilateral low back pain without sciatica; Essential hypertension Social History Tobacco Use Types Packs/Day Years Used Date Smoking Tobacco: Former Cigarettes Passive Smoke Exposure: Never Smokeless Tobacco: Never Tobacco Cessation:Counseling Given: Not Answered Alcohol Use Standard Drinks/Week Comments Not Currently 0 (1 standard drink = 0.6 oz pur e alcohol) occasional / socially Depression Answer Date Recorded Patient Health Questionnaire-9 Score 9 09/12/2022 Housing Stability Answer Date Recorded What is your housing situation today? I have speedy mon 09/13/[address] you li ve. Do you have problems with any of the following? None of the above 09/13/2024 Food Insecurity Answer Date Recorded Within the past 12 months, y ou worried that your food would run out before you got money to buy more: Never True 03/24/2024 Within the past 12 months,th e food you bought just didn't last and you didn't have enough money to get more: Never True 07/2024 Transportation Answer Date Recorded In the past 12 months, has l ack of transportation kept you from medical appts, meetings, work or from getting things needed for daily living? No 03/24/2024 Utilities Answer Date Recorded In the past 12 months, has t he electric, gas, oil or water company threatened to shut off services in your home? No 03/24/2024 Depression Answer Date Recorded Patient Health Questionnaire-2 Score 0 09/13/2024 Internet Access Answer Date Recorded Internet Access Q1 Yes 03/24/2024 Internet Access Q2 Not on file 03/24/2024 Comments No Sex and Gender Information Value Date Recorded Sex Assigned at Female 12/16/2021 10:14 AM EDT Legal Sex Female 10:14 AM EDT Gender Identity Female 12/16/2021 10:14 AM EDT Sexual Orientation Straight 12/16/2021 10 :14 AM EDT documented as of this encounter Last Filed Vital Signs Vital Sign Reading Time Taken Comments Blood Pressure 139/93 11/16/2024 3:53 PM EDT Pulse 68 11/16/2024 3:53 PM EDT Temperature 36.7 C (98 F) 11/16/2024 3:53 PM EDT Respiratory Rate 16 11/16/2024 3:53 PM EDT Oxygen Saturation 99% 11/16/2024 3:53 PM EDT Inhaled Oxygen Concentration - - Weight - - Height - - Body Mass Index - - documented in this encounter Progress Notes * Nadja Redman RN - 11/16/2024 3:20 PM EDT Assessment: Patient presents to Walk- In Center c/o Shortness of breath, Intermittent Left sided chest pain, Left lower ext numbness that started 1 month ago. No resp distress observed. Bilateral Upper and Lowerextremity strength. Symptoms have been present for month. Symptoms are intermittent Patient is taking (treatment/meds) none . VS as follows (if applicable): Temp 98.0 orally HR 68 regular rate and rhythm Resp 16 none BP 139/93 right Arm; Device: Automatic Cuff Size: regular O2 sat 98 % on room air Pain level: 5, Location: Left chest Clear to auscultation bilaterally, Location: throughout Allergies[1] Current Medications[2] Patient Active Problem List Diagnosis Date Noted Chronic frontal sinusitis 10/14/2024 Dysuria 09/13/2024 Other headache syndrome 09/13/2024 Visit for preventive health examination 04/08/2024 Dental calculus 10/30/2023 Strep pharyngitis 09/02/2023 Pharyngitis 09/02/2023 Symptomatic apical periodontitis 08/13/2023 Mixed anxiety depressive disorder 07/11/2022 Essential hypertension 12/18/2020 Migraine with aura 12/18/2020 Disease due to severe acute respiratory syndrome coronavirus 2 (SARS-CoV-2) 06/11/2020 Right hip pain 05/06/2017 Depressive disorder 04/27/2013 In Office Testing EKG obtained Plan of care: Report to Dr. Nassar Provider evaluation: Yes T Patient will wait in room for provider Nadja Redman RN [1] No Known Allergies [2] Current Outpatient Medications Medication Sig Dispense Refill acetaminophen (Tylenol) 500 MG tablet Take 1 tablet (500 mg) by mouth every 6 (six) hours if neededfor mild pain for up to 20 doses. 20 tablet 0 amitriptyline (Elavil) 10 MG tablet TAKE 1 TABLET BY MOUTH AT BEDTIME 30 tablet 0 diphenhydrAMINE (BENADryl) 25 MG tablet Take 1 tablet (25 mg) by mouth if needed at bedtime for itching. (Patient not taking: Reported on 10/05/2024) 30 tablet 0 fluticasone (Flonase) 50 MCG/ACT nasal spray SPRAY 1 TO 2 SPRAYS INTO EACH NOSTRIL EVERY DAY. SHAKEGENTLY. BEFORE FIRST USE, PRIME PUMP. AFTER USE, CLEAN TIP AND REPLACE CAP. 48 mL 0 loratadine (Claritin) 10 MG tablet TAKE 1 TABLET (10 MG) BY MOUTH ONCE PER DAY. 90 tablet 0 SUMAtriptan (Imitrex) 100 MG tablet Take 1 tablet (100 mg) by mouth 1 (one) time if needed for migraine for up to 108 doses. 9 tablet 11 No current facility-administered medications for this visit. * Amandeep Nassar MD - 11/16/2024 3:20 PM EDTAssociated Order(s): ECG 12 lead Post-Procedure Diagnose(s): Chest pain, unspecified type Subjective Patient ID: Becca Espinoza is a 39 y.o. female. Becca has 1 month h/o pain across lower back, worse with twisting torso. Tylenol and Motrin help a little. Heat helps. Denies fever, chills, abd. pain, urinary sx, bowel or bladder dysfunction, saddle anesthesia, extremity weakness, or radiation of pain. Also has had 1 month h/o numbness in anterior right leg, occurs only when sitting in chair or car. Also for many months has had a sharp pain in left anterior chest that comes and goes, worse with deep breath, worse at night, lasts about 3 minutes, occurs a few times/week. Pain is not present now. No cough, hemoptysis, or family h/o blood clots, extremity pain or swelling. 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 Patient Active Problem List Diagnosis Date Noted Chronic frontal sinusitis 10/14/2024 Dysuria 09/13/2024 Other headache syndrome 09/13/2024 Visit for preventive health examination 04/08/2024 Dental calculus 10/30/2023 Strep pharyngitis 09/02/2023 Pharyngitis 09/02/2023 Symptomatic apical periodontitis 08/13/2023 Mixed anxiety depressive disorder 07/11/2022 Essential hypertension 12/18/2020 Migraine with aura 12/18/2020 Disease due to severe acute respiratory syndrome coronavirus 2 (SARS-CoV-2) 06/11/2020 Right hip pain 05/06/2017 Depressive disorder 04/27/2013 The following portions of the chart were reviewed this encounter and updated as appropriate: Tobacco Allergies Meds Problems Med Hx Surg Hx Fam Hx Review of Systems Respiratory: Positive for shortness of breath. Cardiovascular: Positive for chest pain. Musculoskeletal: Positive for back pain. Neurological: Positive for numbness. Objective Physical Exam Constitutional: Appearance: Normal appearance. HENT: Right Ear: Tympanic membrane, ear canal and external ear normal. Left Ear: Tympanic membrane, ear canal and external ear normal. Nose: Nose normal. Mouth/Throat: Mouth: Mucous membranes are moist. Pharynx: Oropharynx is clear. Eyes: Conjunctiva/sclera: Conjunctivae normal. Pupils: Pupils are equal, round, and reactive to light. Cardiovascular: Rate and Rhythm: Normal rate and regular rhythm. Heart sounds: No murmur heard. Pulmonary: Effort: Pulmonary effort is normal. Breath sounds: Normal breath sounds. Musculoskeletal: General: Normal range of motion. Cervical back: No tenderness. Skin: Findings: No rash. Neurological: Mental Status: She is alert. Gait: Gait is intact. Psychiatric: Mood and Affect: Mood normal. Behavior: Behavior normal. ECG 12 lead Date/Time: 11/16/2024 5:11 PM Performed by: Amandeep Nassar MD Authorized by: Amandeep Nassar MD Previous ECG: Previous ECG: Unavailable Interpretation: Interpretation: normal Rate: ECG rate: 65 ECG rate assessment: normal Rhythm: Rhythm: sinus rhythm Ectopy: Ectopy: none QRS: QRS axis: Normal QRS intervals: Normal QRS conduction: normal ST segments: ST segments: Normal T waves: T waves: normal Q waves: Abnormal Q-waves: not present Assessment/Plan Diagnoses and all orders for this visit: Chest pain, unspecified type EKG: Normal. Has no chest pain now. Chest x-ray and D-dimer ordered. Will call patient with results. Return to clinic or go to ED if pain recurs and is not resolving. - ECG 12 lead - XR Chest 2 Views; Future - D-Dimer, Quantitative; Future Right leg numbness ? Radiculopathy. Refer to pain management due to numbness with low back pain. Continue current medication and heat. Acute bilateral low back pain without sciatica Lumbar spine x-rays ordered. Will call pty with report. As above. Essential hypertension Does not take any antihypertensives. Has home BP monitor. Reviewed BP parameters, given written BP log that includes BP parameters, to keep daily. RN BP visit scheduled. Patient will bring BP log with her to appointment. documented in this encounter Plan of Treatment Upcoming Encounters Date Type Department Care Team (Late st Contact Info) Description 11/23/2024 10:00 AM EDT Office Visit [facility] [address] [place] [address] Lynn Cha DDS [address] [place] [address] 11/25/2024 9:30 AM EDT Clinical Support [facility] [address] [place] [address] 05/10/2025 9:30 AM EDT Office Visit [facility] [address] [place] [address] Glenroy Kelley Scheduled Orders Name Type Priority Associated Diagnoses Orde r Schedule D-Dimer, Quantitative Lab Routine Chest pain, unspecified type Expected: 11/16/2024 (Approximate), Expires: 11/16/2025 XR Lumbar Spine 2-3 Views Imaging Routine Right leg numbness Acute bilateral low back pain without sciatica Expected: 11/16/2024, Expires: 11/16/2025 Scheduled Referrals Name Type Priority Associated Diagnoses Orde r Schedule Referral to Pain Medicine Outpatient Referral Routine Right leg numbness Acute bilateral low back pain without sciatica Expected: 11/16/2024 (Approximate), Expires: 11/16/2025 documented as of this encounter Procedures Procedure Name Priority Date/Time Associated Diagnosis Comments XR CHEST 2 VIEWS Routine 11/17/2024 11:5 7 AM EDT Chest pain, unspecified type ECG 12-LEAD Routine 11/16/2024 5:11 PM EDT Chest pain, unspecified type documented in this encounter Results * XR Chest 2 Views (11/17/2024 11:57 AM EDT) Anatomical Region Laterality Modality Chest Radiographic Melany ging 11/17/2024 11:5 7 AM EDT Narrative 11/17/2024 12:18 PM EDT [address] [address] XRay Report Signed Patient: Becca Espinoza MR#: [id number] : 1985 Acct:[id number] Age/Sex: 39 / F ADM Date: 11/17/24 Loc: [facility] Attending Dr: Amandeep Nassar MD Ordering Physician: AMANDEEP NASSAR MD Date of Service: 11/17/24 Procedure(s): XR chest 2V Accession Number(s): [id number] cc: AMANDEEP NASSAR MD; Katty Spears NP Reason for Exam: left anterior chest pain EXAMINATION: XR CHEST CLINICAL INFORMATION: left anterior chest pain COMPARISON: None available. TECHNIQUE: 2 views of the chest were obtained. FINDINGS: The cardiac, hilar, and mediastinal contours are normal. The lungs are clear bilaterally. There is no pneumothorax or pleural effusion. There is no focal osseous or soft tissue abnormality. XR/XR chest 2V IMPRESSION: Normal chest. Electronically signed by: El Mayes MD 11/17/2024 12:15 PM EDT Dictated By: El Mayes MD Signed By: <Electronically signed by El Mayes MD in OV> 11/17/24 1215 DD/ 1157 TD/TT: 11/17/24 1203 Vulcanizing Press Operator: Procedure Note Donotuseinterpreter, Image - 11/17/[address] [address] XRay Report Signed Patient: Kate EspinozaR#: [id number] : 1985Acct:[id number] Age/Sex: 39 / FADM Date: 11/17/24 Loc: [facility] Attending Dr: Amandeep Nassar MD Ordering Physician: AMANDEEP NASSAR MD Date of Service: 11/17/24 Procedure(s): XR chest 2V Accession Number(s): [id number] cc: AMANDEEP NASSAR MD; Katty Spears NP Reason for Exam: left anterior chest pain EXAMINATION: XR CHEST CLINICAL INFORMATION: left anterior chest pain COMPARISON: None available. TECHNIQUE: 2 views of the chest were obtained. FINDINGS: The cardiac, hilar, and mediastinal contours are normal. The lungs are clear bilaterally. There is no pneumothorax or pleural effusion. There is no focal osseous or soft tissue abnormality. XR/XR chest 2V IMPRESSION: Normal chest. Electronically signed by: El Mayes MD 11/17/2024 12:15 PM EDT RP Dictated By: El Mayes MD Signed By: <Electronically signed by El Mayes MD in OV> 11/17/24 1215 DD/ 1157 TD/TT: 11/17/24 1203 Vulcanizing Press Operator: Amandeep Nassar MD IMG XR PROCEDURES Edited Result - Final * ECG 12 lead (11/16/2024 5:11 PM EDT) Narrative Amandeep Nassar MD - 11/16/2024 5:11 PM EDT Amandeep Nassar MD 11/16/2024 5:55 PM ECG 12 lead Date/Time: 11/16/2024 5:11 PM Performed by: Amandeep Nassar MD Authorized by: Amandeep Nassar MD Previous ECG: Previous ECG: Unavailable Interpretation: Interpretation: normal Rate: ECG rate: 65 ECG rate assessment: normal Rhythm: Rhythm: sinus rhythm Ectopy: Ectopy: none QRS: QRS axis: Normal QRS intervals: Normal QRS conduction: normal ST segments: ST segments: Normal T waves: T waves: normal Q waves: Abnormal Q-waves: not present Amandeep Nassar MD ECG ORDERABLES Final Result documented in this encounter Visit Diagnoses Diagnosis Chest pain, unspecified type- Primary Right leg numbness Disturbance of skin sensation Acute bilateral low back pain without sciatica Essential hypertension Unspecified essential hypertension documented in this encounter Additional Health Concerns Assessment Noted Time PHQ-9 Depression Total Score: 9 09/13/19 23 11:23 AM EDT documented as of this encounter Care Teams Fine Craft Artist Relationship Specialty Start Date End Date Katty Spears NP [address] [place] [address] PCP - General Family Medicine 10/20/23 documented as of this encounter
--- NOTE | ~2024-11-17 | XR_ITS ---
EXAMINATION: XR LUMBOSACRAL SPINE CLINICAL INFORMATION: PAIN COMPARISON: None available. TECHNIQUE: 4 views FINDINGS: There appears to be transitional anatomy. There appears to be 6 nonrib-bearing lumbar vertebral bodies. For the purpose of this study, the lowermost nonrib-bearing vertebral body is designated as L5. Vertebral body heights are maintained. No evidence of acute fracture or spondylolisthesis. Disc spaces are maintained. No worrisome lytic or blastic lesions. SI joints are intact. Paraspinal soft tissues appear unremarkable. No abnormal soft tissue calcifications. XR/XR lumbar spine 2-3V IMPRESSION: There appears to be transitional anatomy. Recommend close correlation prior to any intervention/procedure. No radiographic evidence of acute fracture or spondylolisthesis. Electronically signed by: Jeet Hurtado MD 11/23/2024 09:46 AM EDT
--- NOTE | ~2024-11-17 | XR_ITS ---
EXAMINATION: XR CHEST CLINICAL INFORMATION: left anterior chest pain COMPARISON: None available. TECHNIQUE: 2 views of the chest were obtained. FINDINGS: The cardiac, hilar, and mediastinal contours are normal. The lungs are clear bilaterally. There is no pneumothorax or pleural effusion. There is no focal osseous or soft tissue abnormality. XR/XR chest 2V IMPRESSION: Normal chest. Electronically signed by: El Mayes MD 11/17/2024 12:15 PM EDT
[2024-11-17 12:13] LABS: D Dimer High Sensitivity < 150 NG/ML
--- OUTSIDE RECORDS SUMMARY | 2024-11-17 13:24 | XMS_ITS | Encounter Summary ---
Author Organization [employer] Address [address] [place] [address] 7[address] [place] [address] Care Team Providers Care Resolute Professional Name Role Phone Caty GabrielP Primary Care Provider [phone] Katty Spears NP Primary Care Provider [phone] Encounter Details Date Type Department Care Team (Late st Contact Info) Description 10/28/2022 Orders Only [facility] [address] [place] [address] Caty Gabriel FNP [address] [place] [address] Social History Tobacco Use Types Packs/Day Years Used Date Smoking Tobacco: Never Passive Smoke Exposure: Never Smokeless Tobacco: Never Alcohol Use Standard Drinks/Week Comments Not Currently 0 (1 standard drink = 0.6 oz pur e alcohol) occasional / socially Depression Answer Date Recorded Patient Health Questionnaire-9 Score 9 09/12/2022 Depression Answer Date Recorded Patient Health Questionnaire-2 Score 2 09/12/2022 Comments No Sex and Gender Information Value Date Recorded Sex Assigned at Female 12/16/2021 10:14 AM EDT Legal Sex Female 10:14 AM EDT Gender Identity Female 12/16/2021 10:14 AM EDT Sexual Orientation Straight 12/16/2021 10 :14 AM EDT documented as of this encounter Plan of Treatment Upcoming Encounters Date Type Department Care Team (Late Contact Info) Description 11/23/2024 10:00 AM EDT Office Visit [facility] [address] [place] [address] Lynn Cha DDS [address] [place] [address] 11/25/2024 9:30 AM EDT Clinical Support [facility] [address] [place] [address] 05/10/2025 9:30 AM EDT Office Visit [facility] [address] [place] [address] Glenroy Kelley documented as of this encounter Visit Diagnoses Not on filedocumented in this encounter Additional Health Concerns Assessment Noted Time PHQ-9 Depression Total Score: 9 09/13/19 23 11:23 AM EDT documented as of this encounter Care Teams Resolute Professional Relationship Specialty Start Date End Date Caty Gabriel FNP [address] [place] [address] PCP - General Family Medicine 06/03/22 10/19/23 Katty Spears NP [address] [place] [address] PCP - General Family Medicine 10/20/23 documented as of this encounter
--- OUTSIDE RECORDS SUMMARY | 2024-11-17 13:24 | XMS_ITS | Encounter Summary ---
Author Organization [employer] Address [address] [facility] [address] [place] [address] Care Team Providers Care Verification Lead Name Role Phone Auguste Haydee PEREZ Primary Care Provider [phone] Kika Maya CELL EFFICIENCY SUPERVISOR Primary Care Provider Ayse Mckeon CELL EFFICIENCY SUPERVISOR Primary Care Provider [phone] Caty Gabriel CELL EFFICIENCY SUPERVISOR Primary Care Provider [phone] Katty Spears NP Primary Care Provider [phone] Encounter Details Date Type Department Care Team (Latest Contact Info) Description 07/23/2018 Abstract [facility] CONVERSIONS Dental, Provider, DDS Social History Tobacco Use Types Packs/Day Years Used Date Smoking Tobacco: Never Assessed Comments Unknown Sex and Gender Information Value [...] Description 11/23/2024 10:00 AM EDT Office Visit [facility] ADULT D[facility] [address] [place] [address] Lynn Cha DDS [address] [place] [address] 11/25/2024 9:30 AM EDT Clinical Support [facility] MED[facility] [address] [place] [address] 05/10/2025 9:30 AM EDT Office Visit [facility] ADULT [facility] [address] [place] [address] Glenroy Kelley documented as of this encounter Visit Diagnoses Not on filedocumented in this encounter Care Teams Verification Lead Relationship Specialty Start Date End Date Haydee Auguste ANP [address] [place] [address] PCP - General Family Medicine 10/10/21 03/19/22 Kika Maya FNP [address] [place] [address] PCP - General Family Medicine 03/20/22 04/16/22 Ayse Choi FNP [address] [place] [address] PCP - General Family Medicine 04/17/22 06/02/22 Caty Gabriel FNP [address] [place] [address] PCP - General Family Medicine 06/03/22 10/19/23 Katty Spears NP [address] [place] [address] PCP - General Family Medicine 10/20/23 documented as of this encounter
--- OUTSIDE RECORDS SUMMARY | 2024-11-17 13:24 | XMS_ITS | Encounter Summary ---
Author Organization [employer] Address [address] [place] [address] Care Team Providers Care Distribution Collection Operator Name Role Phone Katty Spears NP Primary Care Provider [phone] Encounter Details Date Type Department Care Team (Latest Contact Info) Description 11/16/2024 Travel Social History Tobacco Use Types Packs/Day Years [...] Description 11/23/2024 10:00 AM EDT Office Visit [facility] [address] [place] [address] Lynn Cha DDS [address] [place] [address] 11/25/2024 9:30 AM EDT Clinical Support [facility] [address] [place] [address] 05/10/2025 9:30 AM EDT Office Visit [facility] [address] [place] [address] Glenroy Kelley documented as of this encounter Visit Diagnoses Not on filedocumented in this encounter Additional Health Concerns Assessment Noted Time PHQ-9 Depression Total Score: 9 09/13/19 23 11:23 AM EDT documented as of this encounter Care Teams Distribution Collection Operator Relationship Specialty Start Date End Date Katty Spears NP [address] [place] [address] PCP - General Family Medicine 10/20/23 documented as of this encounter
--- OUTSIDE RECORDS SUMMARY | 2024-11-17 13:24 | XMS_ITS | Encounter Summary ---
Author Organization [email or web address] Address [address] [place] [address] Care Team Providers Care Academic Support Coordinator Name Role Phone Caty GabrielP Primary Care Provider [phone] Katty Spears NP Primary Care Provider [phone] Encounter Details Date Type Department Care Team (Late st Contact Info) Description 01/12/2023 Abstract [facility] [address] [place] [address] Estrellita Lugo Social History Tobacco Use Types [...] 10:00 AM EDT Office Visit [facility] [address] [place] [address] Lynn Cha DDS [address] [place] [address] 11/25/2024 9:30 AM EDT Clinical Support [facility] [address] [place] [address] 05/10/2025 9:30 AM EDT Office Visit [facility] [address] [place] [address] Glenroy Kelley documented as of this encounter Procedures Procedure [...] documented as of this encounter Care Teams Academic Support Coordinator Relationship Specialty Start Date End Date Caty Gabriel FNP [address] [place] [address] PCP - General Family Medicine 06/03/22 10/19/23 Katty Spears NP [address] [place] [address] PCP - General Family Medicine 10/20/23 documented as of this encounter
--- OUTSIDE RECORDS SUMMARY | 2024-11-17 13:24 | XMS_ITS | Encounter Summary ---
Author Organization [employer] Address [address] [place] [address] [address] [place] [address] Care Team Providers Care Commercial Illustrator Name Role Phone Cayt GabrielP Primary Care Provider [phone] Katty Spears NP Primary Care Provider [phone] Reason for Visit * Reason Onset Date Comments Med Refill 11/10/2022 Encounter Details Date Type Department Care Team (Late Contact Info) Description 11/10/2022 Refill [facility] [address] [place] [address] Caty Gabriel FNP [address] [facility] [address] Social History Tobacco Use Types Packs/Day Years [...] 10:00 AM EDT Office Visit [facility] [address] [place] [address] Lynn Cha DDS [address] [place] [address] 11/25/2024 9:30 AM EDT Clinical Support [facility] [address] [place] [address] 05/10/2025 9:30 AM EDT Office Visit [facility] [address] [place] [address] Glenroy Kelley documented as of this encounter Visit Diagnoses Not on filedocumented in this encounter Additional Health Concerns Assessment Noted Time PHQ-9 Depression Total Score: 9 09/13/19 23 11:23 AM EDT documented as of this encounter Care Teams Commercial Illustrator Relationship Specialty Start Date End Date Caty Gabriel FNP [address] [place] [id number] PCP - General Family Medicine 06/03/22 10/19/23 Katty Spears NP [address] [place] [address] PCP - General Family Medicine 10/20/23 documented as of this encounter
--- OUTSIDE RECORDS SUMMARY | 2024-11-17 13:24 | XMS_ITS | Clinical Summary ---
Author Organization [employer] Address [address] [place] [address] Care Team Providers Care Integrated Circuit Layout Designer Name Role Phone Katty Spears NP Primary Care Provider [phone] Allergies No known active allergies Medications acetaminophen (Tylenol) 500 MG tablet Take 1 tablet (500 mg) by mouth every 6 (six) hours if needed for mild pain for up to 20 doses. 20 tablet 4 Active SUMAtriptan (Imitrex) 100 MG tablet Take 1 tablet (100 mg) by mouth 1 (one) time if needed for migraine for up to 108 doses. 9 tablet 11 5 Active diphenhydrAMINE (BENADryl) 25 MG tabletIndicatio ns:Seasonal allergies Take 1 tablet (25 mg) by mouth if needed at bedtime for itching. 30 tablet 5 Active Additional Information Patient not taking.Reported on 10/05/2024 loratadine (Claritin) 10 MG tabletIndicatio ns:Seasonal allergies TAKE 1 TABLET (10 MG) BY MOUTH ONCE PER DAY. 90 tablet 5 Active fluticasone (Flonase) 50 MCG/ACT nasal sprayIndication s:Seasonal allergies SPRAY 1 TO 2 SPRAYS INTO EACH NOSTRIL EVERY DAY. SHAKE GENTLY. BEFORE FIRST USE, PRIME PUMP. AFTER USE, CLEAN TIP AND REPLACE CAP. 48 mL 5 Active amitriptyline (Elavil) 10 MG tablet TAKE 1 TABLET BY MOUTH AT BEDTIME 30 tablet 5 Active doxycycline (Vibra-Tabs) 100 MG tablet Take 1 tablet (100 mg) by mouth 2 times daily for 7 days. Take with a full glass of water and do not lie down for at least 30 minutes after. 14 tablet 10/22/19 25 Active Problems Problem Noted Date Diagnosed Date Chest pain 11/16/2024 Chronic frontal sinusitis 10/14/2024 Assessment & Plan (10/14/2024 11:39 AM EDT): Rx for doxycline given persistent symptoms despite consistent use of nasal spray, allergy med Take with food (not dairy) Complete course as prescribed, If no sig improvement in symptoms, Return to clinic Dysuria 09/13/2024 Assessment & Plan (09/13/2024 11:55 AM EDT): Will send for culture Other headache syndrome 09/13/2024 Assessment & Plan (09/13/2024 11:55 AM EDT): See above, pt endorses significant photophobia. Visit for preventive health examination 04/08/19 25 Overview (10/14/2024): Per pt pap scheduled for 10/2024 Assessment & Plan (04/08/2024 11:04 AM EST): Discussed with patient re increase fresh fruit and vegetable intake. Counseled re moderate exercise as tolerated, up to 20min/d Patient feels safe at home. PAP smear: UTD, next one due 09/2024, she will call [facility] to schedule appointment. Eye exam: UTD, next one due 2025 Lipids/FBS: Overdue, will order Vaccinations: Agreed to Influenza and COVID Immunizations today; other Adult IZ are UTD. Dental visit: UTD, next one due 04/2024 Dental calculus 10/30/2023 Strep pharyngitis 09/02/2023 Assessment & Plan (09/02/2023 10:00 AM EDT): -clinic picture highly suspicious for strep pharyngitis -amoxicillin 500mg bid for 10 days-droplet precautions discussed -supportive care discussed -ER precautions given Pharyngitis 09/02/2023 Assessment & Plan (09/13/2024 11:56 AM EDT): Pt with persistent pnd and chronic pharingitis with associated chronic cervical lymphadenopathy, will send throat culture, Suspect pnd from seasonal allergies, referred to allergy, Symptomatic apical periodontitis 08/13/2023 Mixed anxiety depressive disorder 07/11/2022 Essential hypertension 12/18/2020 Assessment & Plan (06/22/2024 10:42 AM EDT): It seems to be control, she is off medications. I advised her to continue checking BP least once per week and call back as needed if BP above 140/90. Counseled re low salt diet/increase moderate physical activity. Check home BP BIW and prn CP/POWERS/PRESLEY Follow-up with new PCP in 3 to 6 months Assessment & Plan (04/08/2024 11:06 AM EST): Not on any medication at this time, today she is borderline high. Advised to check BP at home three times per week, avoid to check during episodes of migraine headache or pain. Counseled re low salt diet/increase moderate physical activity. Non smoking patient. FU with PCP on 4-6 weeks. Migraine with aura 12/18/2020 Assessment & Plan (09/13/2024 11:55 AM EDT): Due to frequency will trial amitryptiline, reviewed precautions Assessment & Plan (06/22/2024 10:42 AM EDT): Doing well on Imitrex 50 mg, we discussed regarding side effects including palpitations, anxiety, chest pressure and GI symptoms. She will keep track of symptoms, follow-up with PCP if she has more than 1 episode per week, may need prophylactic medications Advised to avoid smoking, alcohol or any recreational substances Assessment & Plan (04/08/2024 11:09 AM EST): Advised to use Tylenol + Ibuprofen at onset of migraine. Take Imitrex 50-100 mg if symptoms do not resolve within 2 hrs. Continue Imitrex every 6 hrs PRN with max dose of 200 mg/day. Disease due to severe acute respiratory syndrome coronavirus 2 (SARS-CoV-2) 06/11/2020 Right hip pain 05/06/2017 Depressive disorder 04/27/2013 Encounters Date Type Department Care Team Description 11/17/2024 Orders Only [facility] [address] [place] [phone] Amandeep Giles MD 11/16/2024 3:20 PM EDT Office Visit [facility] [address] [address] Amandeep Giles MD Chest pain, unspecified type (Primary Dx); Right leg numbness; Acute bilateral low back pain without sciatica; Essential hypertension 11/16/2024 Travel 11/16/2024 Telephone [facility] [address] [place] [phone] Katty Spears NP Nurse Triage 11/09/2024 11:00 AM EDT Office Visit [facility] [address] [place] [address] Glenroy Kelley Dental calculus (Primary Dx) 10/14/2024 10:15 AM EDT Office Visit [address] [address] Katty Spears NP Chronic frontal sinusitis (Primary Dx); Visit for preventive health examination 10/14/2024 Travel 10/13/[address] [address] Marcin Washington [place] CHARTPREP 10/13/[address] [address] Katty Spears NP 10/13/2024 Refill [facility] [address] [address] Agatha Kelley MD Seasonal allergies 10/05/2024 1:30 PM EDT Office Visit [facility] [address] [place] [address] Hiram Ruiz DMD History of tooth extraction, unspecified edentulism class (Primary Dx) 10/03/[address] [address] Katty Spears NP Referral 09/16/2024 Results Follow-Up [facility] [address] [place] [phone] Citlali Rojo, VIVEK POCT Urine , POCT Urinalysis, Culture, Throat, Culture, Urine, Routine 09/13/2024 11:00 AM EDT Office Visit [facility] [address] [place] [phone] Katty Spears NP Dysuria (Primary Dx); Migraine with aura and without status migrainosus, not intractable; Other headache syndrome; Pharyngitis, unspecified etiology 09/13/2024 Travel 09/12/2024 Telephone [facility] [address] [place] [phone] Jennifer Ibarra MA chart prep 09/06/2024 Patient Outreach [facility] [address] [place] [address] Katty Spears NP Pre-visit Planning (SDOH was already completed) from Last 3 Months Immunizations Immunization Administration Dates Next Due DTaP 06/15/1992, 9,1987,1987,1987 Hep B, Adolescent or Pediatric 11/25/1999,1999,04/25/1999 Hib ([facility]) 03/30/1989 IPV 06/15/1992, 9,1987,1987 Influenza injectable quadriv alent IIV4 with preservative 12/14/2017,12/15/2014 Influenza injectable quadriv alent preservative free 11/08/2021,01/05/2020,11/17/2019,2018,11/27/2016,03/20/2016 Influenza, IIV3, injectable 02/20/2014 Influenza, seasonal, injecta ble, preservative free 04/08/2024 MMR 10/02/1994,06/12/1988 PPD Test 03/25/2022 Pfizer Covid-19 Vaccine 12+ 04/08/2024,,09/05/2020 Pfizer Covid-19 Vaccine 12+ Bivalent 01/22/2022 Pfizer Covid-19 Vaccine 12+ troy-sucrose (Jain Cap) 10/09/2021 TD (adult), 2 Lf tetanus tox oid, preservative free, adsorbed 04/25/1999 Tdap 05/21/2020,10/25/2014,09/10/2012 Varicella 03/25/2022 Family History Medical History Relation Name Comments Asthma Father Anxiety disorder Mother Depression Mother Hypertension Mother Migraines Mother Throat cancer Mother's Sister brain cancer, nephew Other Relation Name Status Comments Father Mother Mother's Sister Other Social History Tobacco Use Types Packs/Day Years [...] is your housing situation today? I have speedykiara mon 09/13/[address] you [...] t he electric, gas, oil or water [employer] threatened to shut off services in your [...] Orientation Straight 12/16/2021 10 :14 AM EDT Last Filed Vital Signs Vital Sign Reading Time Taken Comments Blood Pressure 139/93 11/16/2024 3:53 PM EDT Pulse 68 11/16/2024 3:53 PM EDT Temperature 36.7 C (98 F) 11/16/2024 3:53 PM EDT Respiratory Rate 16 11/16/2024 3:53 PM EDT Oxygen Saturation 99% 11/16/2024 3:53 PM EDT Inhaled Oxygen Concentration - - Weight 65.4 kg (144 lb 2 oz) 10/14/2024 10:04 AM EDT Height 165.1 cm (5' 5 ) 10/14/2024 10:04 AM EDT Body Mass Index 23.98 10/14/2024 10:04 AM EDT Plan of Treatment Upcoming Encounters Date Type Department Care Team (Late st Contact Info) Description 11/23/2024 10:00 AM EDT Office Visit [facility] [address] [place] [address] Lynn Cha DDS [address] [place] [address] 11/25/2024 9:30 AM EDT Clinical Support [facility] [address] [place] [address] 05/10/2025 9:30 AM EDT Office Visit [facility] [address] [place] [address] Glenroy Kelley Health Maintenance Due Date Last Done Comments Family Planning (PISQ) 2002 HPV Vaccines (1 - 3-dose series) 2002 Cervical Cancer Screening 09/20/2024 HPV/Cotest 09/20/2024 09/21/2019 Pap Smear 09/20/2024 09/21/2019 Influenza Vaccine (#1) 2024 , 11/08/2021, 01/05/2020, Additional history exists Dental Oral Exam 11/06/2024 05/05/2024, , 05/08/2023, Additional history exists Depression Monitoring 03/16/2025 09/13/2024, 023 Dental Prophylaxis 05/10/2025 11/09/2024, 0 05/05/2024, 10/30/2023, Additional history exists Alcohol/Substance Use Screening 09/13/2025 09/13/2024 Disability Screening 09/13/2025 09/13/2024 SDOH Screening 09/13/2025 09/13/2024 Dental X-Ray: Bitewings 11/10/2025 11/10/19 25, 04/20/2024, 10/30/2023, Additional history exists Tobacco Screening 11/16/2025 11/16/2024 Dental X-Ray: Full Mouth 10/30/2026 024, 04/11/2016, 11/08/2014, Additional history exists Lipid Panel 05/11/2029 05/11/2024, 09/12/2022 DTaP/Tdap/Td Vaccines (9 - Td or Tdap) 05/21/2030 05/21/2020, 10/25/2014, 09/10/2012, Additional history exists Zoster Vaccines (1 of 2) 2037 RSV Patients and Patients Aged 60 years or older (1 - 1-dose 75+ series) 2062 HIB Vaccines Completed 03/30/1989 IPV Vaccines Completed 06/15/1992, 09/1988, 1987, Additional history exists Hepatitis B Vaccines Completed 11/25/1999, 07/10/1999, 04/25/1999 COVID-19 Vaccine Completed 04/08/2024, 08/2021, 10/09/2021, Additional history exists HIV Screening Completed 05/11/2024, 07/16/2022 Hepatitis C Screening Completed 05/11/2024 Hepatitis A Vaccines Aged Out No long er eligible based on patient's age to complete this topic Meningococcal B Vaccine Aged Out No l onger eligible based on patient's age to complete this topic Meningococcal Vaccine Aged Out No eulogio emily eligible based on patient's age to complete this topic Pneumococcal Vaccine: Pediatrics (0 to 5 Years) and At-Risk Patients (6 to 49) Years Aged Out No longer eligible based on patient's age to complete this topic RSV under 20 months Aged Out No longe r eligible based on patient's age to complete this topic Rotavirus Vaccines Aged Out No longer eligible based on patient's age to complete this topic Procedures Procedure Name Priority Date/Time Associated Diagnosis Comments XR CHEST 2 VIEWS Routine 11/17/2024 11:5 7 AM EDT Chest pain, unspecified type D DIMER HIGH SENSITIVITY Routine 11/17/2024 11:41 AM EDT ECG 12-LEAD Routine 11/16/2024 5:11 PM EDT Chest pain, unspecified type INTRAORAL - PERIAPICAL EACH ADDITIONAL RADIOGRAPHIC IMAGE Routine 11/09/2024 11:00 AM EDT INTRAORAL - PERIAPICAL FIRST RADIOGRAPHIC IMAGE Routine 11/09/2024 11:00 AM EDT BITEWINGS - 4 RADIOGRAPHIC IMAGES Routine 11/09/2024 11:00 AM EDT ORAL HYGIENE INSTRUCTIONS Routine 11/09/2024 11:00 AM EDT CASE PRESENTATION, DETAILED AND EXTENSIVE TREATMENT PLANNING Routine 11/09/2024 11:00 AM EDT PROPHYLAXIS - ADULT Routine 11/09/2024 1 1:00 AM EDT 19 EXTRACTION, ERUPTED TOOTH OR EXPOSED ROOT (ELEVATION/FORCEPS REMOVAL) Routine 10/05/2024 1:30 PM EDT CULTURE, URINE, ROUTINE Routine 09/13/2024 11:50 AM EDT Dysuria CULTURE, THROAT Routine 09/13/2024 11:50 AM EDT Pharyngitis, unspecified etiology POCT URINALYSIS DIPSTICK Routine 09/13/2024 11:27 AM EDT Dysuria POCT , URINE Routine 09/13/2024 11:27 AM EDT Dysuria HEPATITIS PANEL, GENERAL Routine 05/11/2024 9:33 AM EDT Migraine with aura and without status migrainosus, not intractable HIV 1/2 ANTIGEN/ANTIBODY, FOURTH GENERATION W/RFL Routine 05/11/2024 9:33 AM EDT Migraine with aura and without status migrainosus, not intractable LIPID PANEL WITH REFLEX TO DIRECT LDL Routine 05/11/2024 9:30 AM EDT Visit for preventive health examination Essential hypertension PERIODIC ORAL EVALUATION - ESTABLISHED PATIENT Routine 05/05/2024 9:00 AM EDT INTRAORAL - COMPLETE SERIES OF RADIOGRAPHIC IMAGES Routine 10/30/2023 10:30 AM EDT HM PAP/HPV Routine 09/21/2019 from Last 3 Months or Most Recently Relevant to Health Maintenance Results * XR Chest 2 Views (11/17/2024 11:57 AM EDT) Anatomical Region Laterality Modality Chest Radiographic Melany ging 11/17/2024 11:5 7 AM EDT Narrative 11/17/2024 12:18 PM EDT [address] [address] XRay Report Signed Patient: Becca Espinoza MR#: [id number] : 1985 Acct:[id number] Age/Sex: 39 / F ADM Date: 11/17/24 Loc: [facility] Attending Dr: Amandeep Giles MD Ordering Physician: AMANDEEP GILES MD Date of Service: 11/17/24 Procedure(s): XR chest 2V Accession Number(s): [id number] cc: AMANDEEP GILES MD; Katty Spears NP Reason for Exam: [...] 11/17/24 1215 DD/ 1157 TD/TT: 11/17/24 1203 Desizing Machine Back Tender: Procedure Note Donotuseinterpreter, Image - 11/17/[address] [address] XRay Report Signed Patient: Meryl Espinoza#: [id number] : 1985Acct:[id number] Age/Sex: 39 / FADM Date: 11/17/24 Loc: HO.XRAY Attending Dr: Amandeep Giles MD Ordering Physician: AMANDEEP GILES MD Date of Service: 11/17/24 Procedure(s): XR chest 2V Accession Number(s): [id number] cc: AMANDEEP GILES MD; Katty Spears NP Reason for Exam: [...] 11/17/24 1215 DD/ 1157 TD/TT: 11/17/24 1203 Desizing Machine Back Tender: Amandeep Giles MD IMG XR PROCEDURES Edited Result - Final * D Dimer High Sensitivity (11/17/2024 11:41 AM EDT) D Dimer High Sensitivity <150 NG/ML [facility] Comment:D-DIMER HS REFERENCE RANGENote: Our assay reports D-Dimer Units (D- DU).The cut-off value for venous thromboembolic (VTE) disease is230 ng/mL. This value has a very high negative predictivevalue when the patient has a low to moderate clinicalprobability of VTE.The upper limit of normal is 243 ng/mL. 11/17/2024 11:4 1 AM EDT 11/17/2024 11:41 AM EDT Amandeep Giles MD LAB BLOOD ORDERABLES Final Resul t Performing Organization Address [facility] Co de Phone Number [facility] [address] [place] [phone] * ECG 12 lead (11/16/2024 5:11 PM EDT) Amandeep Valdez MD - 11/16/2024 5:11 PM EDT Amandeep Giles MD 11/16/2024 5:55 PM ECG 12 lead Date/Time: 11/16/2024 5:11 PM Performed by: Amandeep Giles MD Authorized by: Amandeep Giles MD Previous ECG: Previous ECG: Unavailable Interpretation: Interpretation: normal Rate: ECG rate: 65 ECG rate assessment: normal Rhythm: Rhythm: sinus rhythm Ectopy: Ectopy: none QRS: QRS axis: Normal QRS intervals: Normal QRS conduction: normal ST segments: ST segments: Normal T waves: T waves: normal Q waves: Abnormal Q-waves: not present Amandeep Giles MD ECG ORDERABLES Final Result * Culture, Urine, Routine (09/13/2024 11:50 AM EDT) Urine Urine specimen obtained by clean catch procedure / Unknown 09/13/2024 11:50 AM EDT 09/13/2024 1:04 PM EDT Comment:CC Narrative [facility] - 09/14/2024 11:41 AM EDT Urine Culture Report Result Urine Culture > 100,000 cfu/ml Urine Culture Mixed bacterial tiffany characteristic of Urine Culture urogenital contamination. Specimen Source: Urine clean catch us Katty Spears NP LAB MICROBIOLOGY - GENERAL ORDER CHUCHO Final Result Performing Organization Address City/[facility]/ZIP Co de Phone Number [facility] [address] [place] [phone] * Culture, Throat (09/13/2024 11:50 AM EDT) Throat Structure of anterior region of neck / Unknown 09/13/2024 11:50 AM EDT 09/13/2024 1:04 PM EDT Comment:Throat Narrative [facility] - 09/15/2024 8:20 AM EDT Throat Culture No Group A Beta-hemolytic Streptococci isolated. Specimen Source: Throat Katty Spears SURG TECH LAB MICROBIOLOGY - GENERAL ORDER CHUCHO Final Result [facility] [address] [place] [address] [phone] * POCT Urine (09/13/2024 11:27 AM EDT) Preg Test, Ur Negative Negative, Indeterminate, None Detected, Invalid, Specimen unsatisfactory for evaluation, Weakly Positive, 2+ QC Media Lot # [id number] Lot# Expiration Date 93,026 Urine 09/13/2024 11:2 7 AM EDT Katty Spears SURG TECH POINT OF CARE TEST ENTER/EDIT OR DERABLES Final Result * (ABNORMAL) POCT Urinalysis (09/13/2024 11:27 AM EDT) Color, UA Yellow Clarity, UA Clear Glucose, UA Negative Bilirubin, UA Negative Ketones, UA Negative Spec Grav, UA 1.025 Blood, UA Positive(A) Negative, None Detected Comment:small pH, UA 6.0 Protein, UA Trace Urobilinogen, UA 0.2 Leukocytes, UA Negative Negative, Rare, Trace Nitrite, UA Negative Negative, None Detected Appearance, UA clear QC Media Lot # [id number] Lot# Expiration Date ,826 Urine 09/13/2024 11:2 7 AM EDT Katty Spears NP POINT OF CARE TEST ENTER/EDIT OR DERABLES Final Result * Hepatitis Panel, General (05/11/2024 9:33 AM EDT) Hepatitis A IgM Nonreactive Nonreactive [facility] Comment:IgM antibodies to POWERS V not detected; does not exclude earlyacute or recovered HAV infection. ~Hepatitis B Surface Antibody REACTIVE Nonreactive [facility] Comment:REACTIVE: > 11.99 mI U/mL Hepatitis B Core Antibody Nonreactive Nonreactive [facility] Hepatitis C Antibody Nonreactive Nonreactive [facility] Comment:Antibodies to HCV no t detected; does not exclude early acuteHCV infection. Hepatitis B Surface Ag Negative Negative [facility] Blood 05/11/2024 9:33 AM EDT 05/11/2024 11:06 AM EDT us Mimi Huston MD LAB BLOOD ORDERABLES Fin al Result Performing Organization Address [facility]/ZIP Co de Phone Number [facility] [address] [place] [phone] * HIV-1/2 Antigen and Antibodies, Fourth Generation, with Reflexes (05/11/2024 9:33 AM EDT) HIV AB/AG Nonreactive Nonreactive [facility] Comment:HIV-1 p24 Ag and/or HIV-1/HIV-2 Ab not detected.A test result that is nonreactive does not exclude thepossibility of exposure to or infection with HIV-1 and/orHIV-2. Nonreactive results in this assay for individualswith prior exposure to HIV-1 and/or HIV-2 may be due toantigen and antibody levels that are below the limit ofdetection of this assay.The [employer] HIV Ag/Ab Combo assay result andsupplemental assay results should be interpreted inconjunction with the patient's clinical presentation,history and other laboratory results. If the results areinconsistent with clinical evidence, additional testing issuggested to confirm the result. Blood Venous blood specimen / Unknown 05/11/2024 9:33 AM EDT 05/11/2024 11:06 AM EDT us Mimi Huston MD LAB BLOOD ORDERABLES Fin al Result Performing Organization Address [facility]/ZIP Co de Phone Number [facility] [address] [place] [phone] * Lipid Panel with Reflex to Direct LDL (05/11/2024 9:30 AM EDT) Triglycerides 114 <150 mg/dL [facility] Comment:Desirable Triglyceri de: less than 150 mg/dLBorderline High Triglyceride 150-199 mg/dLHigh Triglyceride: 200-499 mg/dLVery High Triglyceride: greater than or equal to 5OO mg/dL Cholesterol 172 <200 mg/dL [facility] Comment:Desirable Cholestero l: less than 200 mg/dLBorderline High Cholesterol: 200-239 mg/dLHigh Cholesterol: greater than 239 mg/dL LDL Cholesterol Calculated 98 <100 mg/dL [facility] Comment:Desirable LDL: less than 100 mg/dLNear Optimal/Above Optimal LDL: 110- 129 mg/dLBorderline High LDL: 130-159 mg/dLHigh LDL: 160-189 mg/dLVery High LDL: greater than or equal to 190 mg/dL HDL Cholesterol 52 >40 mg/dL [facility] Comment:Desirable HDL: great er than 40 mg/dL Note: This HDL assay may give artificially low results in patients with liver disease. Blood 05/11/2024 9:30 AM EDT 05/11/2024 11:06 AM EDT Mimi Huston MD LAB BLOOD ORDERABLES Fin al Result [facility] [address] [place] [phone] * Pap Smear (09/21/2019) Pap Negative for intraephithelial lesion or malignancy Negative for intraephithelial lesion or malignancy, Other HPV Undetected Undetected, Indeterminate, Quantitative, Not Detected Megan Provider HEALTH MAINTENANCE Final Result from Last 3 Months or Most Recently Relevant [place] [id number] [place] [facility] MEDICAID STAND ADULT Care Teams Integrated Circuit Layout Designer Relationship Specialty Start Date End Date Katty Spears NP [address] [place] [phone] PCP - General Family Medicine 10/20/23
--- OUTSIDE RECORDS SUMMARY | 2024-11-17 13:24 | XMS_ITS | Clinical Summary ---
Author Organization [facility] Address [address] [place] [address] Phone Care Team Providers Care Medical Cash Poster Name Role Phone Sunil Ly MD Primary Care Provider [phone] Allergies No known active allergies Medications ACNE [...] HEPATITIS C SCREENING 2005 HIV ONE-TIME SCREENING (18-65 YEARS) 2005 PAP SMEAR 2008 INFLUENZA VACCINE (#1) 2024 , 11/17/2018, 12/14/2017, Additional history exists COVID-19 VACCINE ( season) 2024 09/25/2020, 09/05/2020 Adult Td,Tdap Booster 05/21/2030 05/21/2020 , 10/25/2014, 04/25/1999 HIB VACCINES Completed 03/30/1989 SMOKING STATUS SCREENING (Once After 26 Yrs) Completed 05/11/2017 HEPATITIS A [...] (0-49 years) Aged Out No longer eligible based on patient's age to complete this topic Medical Devices Not on file [place] [address] [place] [address] C3 [employer] [facility] C[place] A[facility] [place] [place] [address] [place] [address] C3 [facility] C3 ACO [facility] C3 ACO Care Teams Medical Cash Poster Relationship Specialty Start Date End Date Sunil Ly MD [address] [place] [phone] PCP - General Pediatrics 05/20/17 Additional Source Comments The information contained in this document represents components of the legal health record. It is not the complete legal health record.[facility]
--- OUTSIDE RECORDS SUMMARY | 2024-11-17 13:24 | XMS_ITS | Encounter Summary ---
Author Organization [employer] Address [address] [facility] 7t [place] [address] Care Team Providers Care Brim Flexer Name Role Phone Katty Spears NP Primary Care Provider [phone] Reason for Visit * Reason Onset Date Comments Referral 10/03/2024 Encounter Details Date Type Department Care Team ([facility] st Contact Info) Description 10/03/2024 Telephone [facility] [address] [place], [place] [phone] Katty Spears NP [address] [place], [place] [phone] Referral Social History Tobacco Use Types Packs/Day Years [...] AM EDT documented as of this encounter Miscellaneous Notes * Telephone Encounter - Estefany Hemphill - 10/03/2024 11:53 AM EDT Tc from pt regarding Allergy referral. Pt was advised to request referral to be sent as urgent. Pt stated she is scheduled for an appointment in January but needs to be seen sooner due to symptoms. Pt denied triage. Contact pt at [phone] documented in this encounter Plan of Treatment Upcoming Encounters Date Type Department Care Team (Late st Contact Info) Description 11/23/2024 10:00 AM EDT Office Visit [facility] [address] [place] [address] Lynn Cha DDS [address] [place] [address] 11/25/2024 9:30 AM EDT Clinical Support [facility] [address] [place] [address] 05/10/2025 9:30 AM EDT Office Visit [facility] [address] [place] [address] Glenroy Kelley documented as of this encounter Visit Diagnoses Not on filedocumented in this encounter Additional Health Concerns Assessment Noted Time PHQ-9 Depression Total Score: 9 09/13/19 23 11:23 AM EDT documented as of this encounter Care Teams Brim Flexer Relationship Specialty Start Date End Date Katty Spears NP [address] [place] [address] PCP - General Family Medicine 10/20/23 documented as of this encounter
--- OUTSIDE RECORDS SUMMARY | 2024-11-17 13:24 | XMS_ITS | Encounter Summary ---
Author Organization [employer] Address [address] [facility] 7t [place] [address] Care Team Providers Care Drier Operator Helper Name Role Phone Katty Spears NP Primary Care Provider [phone] Encounter Details Date Type Department Care Team ([facility] st Contact Info) Description 11/17/2024 Orders Only [facility] [address] [place], [place] [phone] Amandeep Giles MD [address] [place] [address] Social History Tobacco Use Types Packs/Day Years [...] 10:00 AM EDT Office Visit [facility] [address] [place] [address] Lynn Cha DDS [address] [place] [address] 11/25/2024 9:30 AM EDT Clinical Support [facility] [address] [place] [address] 05/10/2025 9:30 AM EDT Office Visit [facility] [address] [place] [address] Glenroy Kelley documented as of this encounter Procedures Procedure Name Priority Date/Time Associated Diagnosis Comments D DIMER HIGH SENSITIVITY Routine 11/17/2024 11:41 AM EDT documented in this encounter Results * D Dimer High Sensitivity (11/17/2024 11:41 AM EDT) D Dimer High Sensitivity <150 NG/ML [facility] Comment:D-DIMER HS REFERENCE RANGENote: Our assay reports D-Dimer Units (D- DU).The cut-off value for venous thromboembolic (VTE) disease is230 ng/mL. This value has a very high negative predictivevalue when the patient has a low to moderate clinicalprobability of VTE.The upper limit of normal is 243 ng/mL. 11/17/2024 11:4 1 AM EDT 11/17/2024 11:41 AM EDT us Amandeep Giles MD LAB BLOOD ORDERABLES Final Resul t [facility] [address] [place] [address] [phone] documented in this encounter Visit Diagnoses Not on filedocumented in this encounter Additional Health Concerns Assessment Noted Time PHQ-9 Depression Total Score: 9 09/13/19 23 11:23 AM EDT documented as of this encounter Care Teams Drier Operator Helper Relationship Specialty Start Date End Date Katty Spears NP [address] [place] [address] PCP - General Family Medicine 10/20/23 documented as of this encounter
--- OUTSIDE RECORDS SUMMARY | 2024-11-17 13:24 | XMS_ITS | Encounter Summary ---
Author Organization [employer] Address [address] [facility] 7t [place] [address] Care Team Providers Care Pot Reliner Name Role Phone Katty Spears NP Primary Care Provider [phone] Reason for Visit * Reason Onset Date Comments Nurse Triage 11/16/2024 Encounter Details Date Type Department Care Team ([facility] st Contact Info) Description 11/16/2024 Telephone [facility] MED[facility]INE [address] [place], [place] [phone] Katty Spears NP [address] [place], [place] [phone] Nurse Triage Social History Tobacco Use Types Packs/Day Years [...] encounter Miscellaneous Notes * Telephone Encounter - Keyanna Martinez RN - 11/16/2024 2:35 PM EDT Triage call Pt reports for a month now has been ignoring some numbness in right lower leg. Pt reports the numbness is from the right knee down to foot. Mainly when sitting in car to drive. Pt denies tingling sensation but, does feel some weakness and cramping. Pt reports this is accompanied with low back pain, chest pain and some sob with deep breath which all come and go no constant sx. Pt is able to ambulate without limping and denies pain in the right leg. No OV available Pt is advised to come to [facility] to be seen by provider and agrees with disposition. Insurance is verified as active. Protocol Used: Neurologic Deficit (Adult) Protocol-Based Disposition: See in Office or Video Visit within 3 Days Positive Triage Question: * Numbness or tingling in one or both feet is a chronic symptom (recurrent or ongoing problem lasting > 4 weeks) * All higher-acuity triage questions were negative Care Advice Discussed: * Reasons To Call Back - Symptoms do not go away within 10 to 15 minutes - You become worse * Telephone Encounter - Devin Leavitt - 11/16/2024 2:19 PM EDT Symptom: Numbness. Chest pain here and there but more concerned about my right let getting numb Outcome: Schedule an urgent appointment (within 1 hour) or talk to a nurse or provider soon Reason: Getting worse The caller accepted this outcome. Contact pt at [phone] documented in this encounter Plan of Treatment Upcoming Encounters Date Type Department Care Team (Late st Contact Info) Description 11/23/2024 10:00 AM EDT Office Visit [facility] [address] [place] [address] Lynn Cha DDS [address] [place] [address] 11/25/2024 9:30 AM EDT Clinical Support [facility] [address] [place] [address] 05/10/2025 9:30 AM EDT Office Visit [facility] [address] [place] [address] Glenroy Kelley documented as of this encounter Visit Diagnoses Not on filedocumented in this encounter Additional Health Concerns Assessment Noted Time PHQ-9 Depression Total Score: 9 09/13/19 23 11:23 AM EDT documented as of this encounter Care Teams Pot Reliner Relationship Specialty Start Date End Date Katty Spears NP [address] [place] [address] PCP - General Family Medicine 10/20/23 documented as of this encounter
== END 2024-11-17 11:32 | disposition home or self-care (01) ==
LOC: HO.XRAY 11:31
PROVIDERS: PCP Nurse Practitioner Family; Visit Provider Emergency Medicine
DX: R07.9 Chest pain, unspecified (principal); R20.0 Anesthesia of skin; M54.50 Low back pain, unspecified
CPT/HCPCS: 36415; 71046; 72100; 85379

== ENCOUNTER → 2024-11-17 11:44 | Outpatient (BNV) | payer MEDICAID, SELFPAY | PROVIDERS: PCP Nurse Practitioner Family; Visit Provider Radiology Diagnostic Radiology | DX: M54.50 Low back pain, unspecified (principal) | CPT/HCPCS: 72100 ==

== ENCOUNTER 2024-12-20 11:18 | Emergency (ER) | payer MEDICAID, SELFPAY ==
--- NOTE | ~2024-12-20 | CT_ITS ---
CLINICAL HISTORY: left lower abdominal pain, ?diverticulitis CT abdomen and pelvis with contrast Comparison: None provided Findings: Hiatal hernia. The liver and spleen are homogeneous in attenuation. The left and right kidney demonstrate symmetric corticomedullary enhancement. Left renal interpolar region 0.4 cm nonobstructing nephrolith. The pancreas is homogeneous in attenuation without main pancreatic ductal dilatation. The adrenals are within normal limits. Segmental mural thickening of the ascending colon, axial image number 38 of 79. No bowel obstruction. The appendix is within normal limits. The uterus is hypertrophic with para adnexal varicosities. Small amount of free fluid in the cul-de-sac. No acute fracture. IMPRESSION: 1. Segmental mural thickening of the ascending colon; decompression artifact versus colitis of the ascending colon. 2. Hiatal hernia. 3. 0.4 cm nonobstructing left renal nephrolith. 4. Hypertrophic uterus with para-adnexal varicosities; pelvic congestion syndrome can not be excluded. 5. No acute intraabdominal or pelvic findings. This document has been electronically signed by: Bautista Heath MD on 12/20/2024 18:31:26
[2024-12-20 11:38] VITALS: BP 145/67; PULSE 66; RESP 18; TEMP 36.3; O2SAT 99; BMI 24.2
--- NOTE | 2024-12-20 11:39 | ED_ITS ---
HPI - General Adult General Chief complaint: Abdominal Pain Stated complaint: Blood in stool, abd pain Time Seen by Provider: 12/20/24 17:04 Source: patient, RN notes reviewed and old records reviewed Mode of arrival: ambulatory Limitations: no limitations History of Present Illness ED Provider: Joanna CHADWICK narrative: 39-year-old female who denies any past medical history presents for evaluation of left lower abdominal pain. She reports that 2 days ago on Thursday she was having left lower abdominal pain and had a couple of episodes of bright red blood per rectum. She states that there was a significant amount of blood She reports having had bowel movements since then and with no bright red blood noted. She denies any rectal pain or history of hemorrhoids. She is not feel constipated Denies any previous abdominal surgeries. She is not on any blood thinners She still continues with some left-sided lower abdominal pain No other complaints or concerns at this time Related Data Previous Rx's ?Medication ?Instructions ?Recorded ibuprofen 600 mg tablet 600 mg PO QID PRN fever or p ain 05/10/23 #20 tabs oseltamivir 75 mg capsule (Tamiflu) 75 mg PO Q12H 5 da ys #10 caps 05/10/23 Allergies Allergy/AdvReac Type Severity Reaction Status Date / Time No Known Allergies Allergy Mild NOT Verified 12/20/24 11:41 APPLICABLE Review of Systems 2 Constitutional: Constitutional: Denies body ache(s), Denies chills, Denies fever(s) and Denies frequent falls Eyes: Eyes: Denies blurry vision ENT: Denies vertigo and Denies dizziness Cardiovascular: Cardiovascular: Denies chest pain and Denies dyspnea on exertion Respiratory: Respiratory: Denies cough and Denies dyspnea on exertion Gastrointestinal: Gastrointestinal: Reports abdominal pain, Denies melena, Reports hematochezia, Denies nausea and Denies vomiting Genitourinary: Genitourinary: Denies dysuria Musculoskeletal: Musculoskeletal: Denies back pain Integumentary/Breasts: Skin/Breast: Denies rash Neurologic: Denies vertigo, Denies dizziness and Denies frequent falls [facility] Past Medical History Surgical History History of reversal of tubal ligation Family History Family History Maternal Grandmother Diabetes Father Asthma Mother HTN (hypertension) Social History Social History Alcohol intake: never Advance Directives: No Advance Directives Information Provided: No Do you have a plan to hurt others: No Plan Physical Exam ED Vital Signs: Vital Signs - 24 hr 12/20/24 11:38 12/20/24 17:17 Temperature 97.3 F 97.9 F Pulse Rate 66 72 Respiratory Rate 18 18 Blood Pressure 145/67 H 145/80 H Pulse Oximetry 99 99 Oxygen Delivery Method Room Air Room Air BMI result Body Mass Index 24.2 Const General: healthy appearing, comfortable, no acute distress, alert and awake Nutritional Appearance: well nourished Orientation/consciousness: patient oriented x3 HENMT Head: Yes normocephalic and Yes atraumatic Eyes Eyelids: Yes eyelids normal Conjunctivae: conjunctivae normal Sclerae: sclerae normal Corneas: corneas normal Pupils: Equal, round and reactive pupils present EOM: EOMs intact bilaterally Neck Neck: Yes full ROM Resp Effort & Inspection: normal respiratory effort, able to speak in complete sentences and not labored GI Inspection: No distended Palpation (GI): Soft to palpation, not firm, Tenderness to palpation present (GI) in the LLQ, no guarding and not rigid Rectal Exam - Female: visual inspection normal, normal sphincter tone, No Abnormal stool present, No External hemorrhoid(s) present, No Internal hemorrhoid(s) present, No fecal impaction and heme negative stool Skin General skin exam: elasticity normal Neuro General: patient oriented x3 Cranial nerves: Yes Equal, round and reactive pupils present and Yes Bilaterally intact EOM present Cognition (Neuro): normal cognition Extrem Other: Moving all extremities well without any obvious deformities Course Course Course Narrative: This is a rapid medical exam performed by Milton Adames NP: Additional HPI, ROS, PE not included below will be deferred to primary provider. Patient is a 39y/o F referred to ED by PCP for hematochezia. States she has not been constipated. 3 episodes last week. Not anticoagulated or on ASA. Complains of lower abd pain. Plan: labs, UA Reevaluation(s) Reevaluation #1: Patient's CT scan does not show any left-sided abnormalities to explain her left-sided lower abdominal pain. There is questionable ascending colitis the patient has no right-sided abdominal discomfort or tenderness on exam. Plan to treat symptomatically and the patient will refer to GI Time: 18:42 Medications Administered Discontinued Medications Generic Name Dose Route Start Last Admin Trade Name Maikel PRN Reason Stop Dose Admin Iohexol 85 ml 12/20/24 18:09 12/20/24 18:09 Iohexol 350 Mg/Ml 100 Ml Infus..Btl IV 12/20/24 18:10 85 ml ONCE ONE Administration Medical Decision Making Medical Decision Making [facility] Narrative: 39-year-old female presents for evaluation of abdominal pain in the left lower quadrant as well as bright red blood per rectum. She has not had any bloody she is tender on exam in the left lower quadrant without guarding. Her labs are reassuring. Her hemoglobin hematocrit are consistent with her baseline. She does have a history of anemia. She does not have a left shift or leukocytosis. No significant chemistry abnormalities warranting dimension. LFTs within normal limits. The patient is not . Rectal examination does not show any obvious internal external hemorrhoids. Guaiac is pending at this time. I did order a CT scan of the abdomen pelvis with IV contrast to evaluate for infectious cause her bloody stool. The patient will likely require follow up with GI for outpatient colonoscopy Differential Diagnosis Differential Diagnoses: The differential diagnosis associated with the presentation includes Constipation Internal hemorrhoids External hemorrhoids Diverticulitis Colitis Colon mass Admission/Observation Consideration of admission/observation: Escalation of care including admission/observation considered Lab Data [facility] Lab Attestation statement: I reviewed the patient's lab results. As above 12/20/24 11:50 12/20/24 11:50 Labs: Lab Results 12/20/24 12/20/24 12/20/24 Range/Units 11:50 17:53 18:28 WBC 6.3 (4.8-10.8) X10*3/uL RBC 4.23 (4.20-5.50) X10*6/uL Hgb 11.9 L (12.0-16.0) g/dl Hct 36.9 L (37.0-47.0) % MCV 87.2 (80.0-98.0) fL MCH 28.1 (27.0-33.0) pg MCHC 32.2 (31.0-35.0) g/dl RDW 13.1 (11.0-16.0) % Plt Count 260 (160-400) X10*3/uL MPV 9.0 L (9.4-12.3) fL Immature Gran % (Auto) 0.3 (0.0-0.4) % Neut % (Auto) 64.0 (45-73) % Lymph % (Auto) 29.1 (20-40) % Blaine % (Auto) 5.5 (2-11) % Eos % (Auto) 0.8 (0-4) % Baso % (Auto) 0.3 (0-2) % Lymph # (Auto) 1.8 (1.2-4.9) X10*3/uL Blaine # (Auto) 0.4 (0.1-1.2) X10*3/uL Eos # (Auto) 0.1 (0.0-0.4) X10*3/uL Baso # (Auto) 0.0 (0.0-0.2) X10*3/uL Abs Immat Gran (auto) 0.02 (0.00-0.03) X10*3/uL Absolute Neuts (auto) 4.0 (2.0-8.3) x10*3/uL Absolute Nucleated RBC 0.000 (0.0-0.012) X10*3/uL Nucleated RBC % (auto) 0.0 (0.0-0.2) /100WBC PT 12.1 (10.9-12.4) SEC INR 1.1 (0.9-1.1) Sodium 141 (135-145) mmol/L Potassium 3.4 (3.3-5.1) mmol/L Chloride 105 (96-108) mmol/L Carbon Dioxide 30 H (22-29) mmol/L Anion Gap 9 L (12-20) BUN 10 (9-16) mg/dL Creatinine 0.68 (0.5-1.4) mg/dL Estim Creat Clear Calc 101.9 Estimated GFR > 60 Random Glucose 116 H (60-115) mg/dL Calcium 9.2 (8.4-10.2) mg/dL Total Bilirubin 0.6 (0.0-1.0) mg/dL AST 22 (5-31) U/L ALT 14 (0-31) U/L Alkaline Phosphatase 72 (39-117) U/L Total Protein 7.6 (6.5-8.0) g/dL Albumin 4.3 (3.5-5.0) g/dL Beta HCG, Quant < 2 mIU/mL Urine Color Yellow Urine Appearance Cloudy Urine pH 7.0 (5.0-9.0) Ur Specific Atwood 1.020 (1.005-1.025) Urine Protein Negative (Neg-Trace) mg/dL Urine Glucose (UA) Negative (Negative) mg/dL Urine Ketones Negative (Negative) mg/dL Urine Blood Trace H (Negative) Urine Nitrite Negative (Negative) Ur Leukocyte Esterase Negative (Negative) Urine RBC 6-10 H (0-2) /HPF Urine WBC 0-5 (0-5) /HPF Ur Squamous Epith Cells 6-10 (0-2) /HPF Urine Bacteria 1+ (None Seen) Hyaline Casts 0-2 (0-2) /LPF Stool Occult Blood NEGATIVE (NEGATIVE) Radiology Impression Discussion of test interpretation with radiology: I have reviewed the radiologist's reading. Radiologist Impression: Findings: Hiatal hernia. The liver and spleen are homogeneous in attenuation. The left and right kidney demonstrate symmetric corticomedullary enhancement. Left renal interpolar region 0.4 cm nonobstructing nephrolith. The pancreas is homogeneous in attenuation without main pancreatic ductal dilatation. The adrenals are within normal limits. Segmental mural thickening of the ascending colon, axial image number 38 of 79. No bowel obstruction. The appendix is within normal limits. The uterus is hypertrophic with para adnexal varicosities. Small amount of free fluid in the cul-de-sac. No acute fracture. IMPRESSION: 1. Segmental mural thickening of the ascending colon; decompression artifact versus colitis of the ascending colon. 2. Hiatal hernia. 3. 0.4 cm nonobstructing left renal nephrolith. 4. Hypertrophic uterus with para-adnexal varicosities; pelvic congestion syndrome can not be excluded. 5. No acute intraabdominal or pelvic findings. This document has been electronically signed by: Bautista Heath MD on 12/20/2024 18:31:26 Discharge Plan Discharge Clinical Impression: Abdominal pain, BRBPR (bright red blood per rectum) Patient Disposition: Home, Self-Care Instructions: Rectal Bleeding (ED) Additional Instructions: Your workup in the ER today was reassuring. You are not severely anemic pain Your CT scan did not show any concerning findings to explain your left-sided abdominal pain or bright red rectal bleeding. I recommend that you follow up with GI for a colonoscopy to attempt to evaluate the source of the bleeding. Try not to strain while using the bathroom Prescriptions: No Action oseltamivir [Tamiflu] 75 mg capsule 75 mg PO Q12H 5 Days Qty: 10 0RF ibuprofen 600 mg tablet 600 mg PO QID PRN (Reason: fever or pain) Qty: 20 0RF Referrals: [facility] [Provider Group, Gastroenterology] Referral Note: bright red rectal bleeding Print Language: Luxembourger
[2024-12-20 11:55] LABS: MANUAL DIFF FLAG NO
[2024-12-20 11:56] LABS: Hematocrit 36.9 % (37.0-47.0); Hemoglobin 11.9 g/dl (12.0-16.0); Imm Gran Abs Auto 0.02 X10*3/uL (0.00-0.03); Imm Gran Pct Auto 0.3 % (0.0-0.4); Lymphocytes Absolute Auto 1.8 X10*3/uL (1.2-4.9); Mean Corpuscular HGB Conc 32.2 g/dl (31.0-35.0); Mean Corpuscular Hemoglobin 28.1 pg (27.0-33.0); Mean Corpuscular Volume 87.2 fL (80.0-98.0); NRBC Abs Auto 0.000 X10*3/uL (0.0-0.012); NRBC Pct Auto 0.0 /100WBC (0.0-0.2); Platelet Count 260 X10*3/uL (160-400); Red Blood Count 4.23 X10*6/uL (4.20-5.50); White Blood Count 6.3 X10*3/uL (4.8-10.8)
[2024-12-20 12:05] LABS: INTERNATIONAL NORM RATIO 1.1 (0.9-1.1); Prothrombin Time 12.1 SEC (10.9-12.4)
[2024-12-20 12:26] LABS: Alanine Aminotransferase 14 U/L (0-31); Albumin Level 4.3 g/dL (3.5-5.0); Alkaline Phosphatase 72 U/L (39-117); Anion Gap 9 (12-20); Aspartate Amino Transferase 22 U/L (5-31); Blood Urea Nitrogen 10 mg/dL (9-16); Calcium 9.2 mg/dL (8.4-10.2); Carbon Dioxide 30 mmol/L (22-29); Chloride 105 mmol/L (96-108); Creatinine Clr Calc Pharmacy 101.9; Estimated Glomerular Filt Rate > 60; Potassium 3.4 mmol/L (3.3-5.1); Sodium 141 mmol/L (135-145); Total Protein 7.6 g/dL (6.5-8.0)
[2024-12-20 17:17] VITALS: BP 145/80; PULSE 72; RESP 18; TEMP 36.6; O2SAT 99
[2024-12-20 18:08] LABS: Appearance Urine Cloudy; Glucose Urine UA Negative (Negative); PH 7.0 (5.0-9.0); Specific Gravity - Urine 1.020 (1.005-1.025); UMIC TRIGGER UACC YES
[2024-12-20] MEDS: iohexoL 350 MG/ML 100 ML INFUS..BTL 85 ML IV (18:09)
[2024-12-20 18:39] LABS: OBS Int Ctl Valid YES; OBS1 NEGATIVE (NEGATIVE)
--- OUTSIDE RECORDS SUMMARY | 2024-12-20 18:43 | XMS_ITS | Encounter Summary ---
Author Organization [employer] Address [address] [facility] 7t [place] [address] Care Team Providers Care Vault Worker Name Role Phone Caty GabrielP Primary Care Provider [phone] Katty pSears NP Primary Care Provider [phone] Reason for Visit * Reason Onset Date Comments Med Refill 11/10/2022 Encounter Details Date Type Department Care Team (Late Contact Info) Description 11/10/2022 Refill [facility] [address] [place] [address] Caty Gabriel FNP [address] [facility] [place] [address] Social History Tobacco Use Types Packs/Day Years [...] Department Care Team (Late Contact Info) Description 12/28/2024 10:00 AM EST Office Visit [facility] [address] [place] [address] Lynn Cha DDS [address] [place] [address] 05/10/2025 9:30 AM EDT Office Visit [facility] [address] [place] [address] Glenroy Kelley documented as of this encounter Visit Diagnoses Not on filedocumented in this encounter Additional Health Concerns Assessment Noted Time PHQ-9 Depression Total Score: 9 09/13/19 23 11:23 AM EDT documented as of this encounter Care Teams Vault Worker Relationship Specialty Start Date End Date Caty Gabriel FNP [address] [place] [address] PCP - General Family Medicine 06/03/22 10/19/23 Katty Spears NP [address] [place] [address] PCP - General Family Medicine 10/20/23 documented as of this encounter
--- OUTSIDE RECORDS SUMMARY | 2024-12-20 18:43 | XMS_ITS | Clinical Summary ---
Author Organization [facility] Address [address] [facility] [address] [place] [address] Phone Care Team Providers Care Animal Care Technician Name Role Phone Sunil Ly MD Primary Care Provider [phone] Allergies No known active allergies Medications ACNE [...] topic Medical Devices Not on [place] [address] [place] [address] [employer] [facility] [employer] [facility] [address] [place] [address] [place] [address] [employer] [facility] [employer] [facility] [employer] [facility] [employer] [facility] [employer]3 ACO Care Teams Animal Care Technician Relationship Specialty Start Date End Date Sunil Ly MD [address] [place] [id number] PCP - General Pediatrics 05/20/17 Additional Source Comments The information contained in this document represents components of the legal health record. It is not the complete legal health record.[facility]
--- OUTSIDE RECORDS SUMMARY | 2024-12-20 18:43 | XMS_ITS | Encounter Summary ---
Author Organization [employer] Address [address] [facility] 7t [place] [address] Care Team Providers Care Insole Bottom Filler Name Role Phone Molina Haydee PEREZ Primary Care Provider [phone] Kika Maya MUD GRINDER Primary Care Provider Ayse Mckeon MUD GRINDER Primary Care Provider [phone] Caty Gabriel MUD GRINDER Primary Care Provider [phone] Katty Spears NP Primary Care Provider [phone] Encounter Details Date Type Department Care Team (Latest Contact Info) Description 07/23/2018 [facility], Provider, DDS Social History Tobacco [...] Care Team (Late st Contact Info) Description 12/28/2024 10:00 AM EST Office Visit [facility] [address] [place], [place] [phone] Lynn Cha DDS [address] [place] [address] 05/10/2025 9:30 AM EDT Office Visit [facility] [address] [place] [address] Glenroy Kelley documented as of this encounter Visit Diagnoses Not on filedocumented in this encounter Care Teams Insole Bottom Filler Relationship Specialty Start Date End Date Haydee Auguste ANP [address] [place] [address] PCP - General Family Medicine 10/10/21 03/19/22 Kika Maya FNP [address] [place] [address] PCP - General Family Medicine 03/20/22 04/16/22 Ayse Choi FNP [address] [place] [address] PCP - General Family Medicine 04/17/22 06/02/22 Caty Gabriel FNP [address] [place] [address] PCP - General Family Medicine 06/03/22 10/19/23 Katty Spears NP [address] [place] [address] PCP - General Family Medicine 10/20/23 documented as of this encounter
--- OUTSIDE RECORDS SUMMARY | 2024-12-20 18:43 | XMS_ITS | Encounter Summary ---
Author Organization [employer] Address [address] [facility] [address] [place] [address] Care Team Providers Care Weaver Tire Cord Name Role Phone Katty Spears NP Primary Care Provider [phone] Reason for Visit * Reason Onset Date Comments Nurse Triage 11/16/2024 Encounter Details Date Type Department Care Team ([facility] st Contact Info) Description 11/16/2024 Telephone [facility] MEDICINE [address] [place], [place] [phone] Katty Spears NP [address] [place], [place] [phone] Nurse Triage Social History Tobacco Use Types [...] available Pt is advised to come to [facility] to be seen by provider and [...] caller accepted this outcome. Contact pt at [phone] documented in this encounter Plan of Treatment Upcoming Encounters Date Type Department Care Team ([facility] st Contact Info) Description 12/28/2024 10:00 AM EST Office Visit [facility] ADULT DENTAL [address] [place] [address] Lynn Cha DDS [address] [place] [address] 05/10/2025 9:30 AM EDT Office Visit [facility] ADULT DENTAL [address] [place] [address] Glenroy Kelley documented as of this encounter Visit Diagnoses Not on filedocumented in this encounter Additional Health Concerns Assessment Noted Time PHQ-9 Depression Total Score: 9 09/13/19 23 11:23 AM EDT documented as of this encounter Care Teams [employer] Cord Relationship Specialty Start Date End Date Katty Spears NP [address] [place] [address] PCP - General Family Medicine 10/20/23 documented as of this encounter
--- OUTSIDE RECORDS SUMMARY | 2024-12-20 18:43 | XMS_ITS | Encounter Summary ---
Author Organization [employer] Address [address] [facility] 7[address] [place] [address] Care Team Providers Care [employer] Energy Systems Installer Name Role Phone Katty Spears NP Primary Care Provider Reason for Visit * Reason Onset Date Comments Results 12/20/2024 Encounter Details Date Type Department Care Team ([facility] st Contact Info) Description 12/20/2024 Telephone [facility] MEDICINE [address] [place], [place] [phone] Katty Spears NP [address] [place] [address] Results Social History Tobacco Use Types Packs/Day Years [...] encounter Miscellaneous Notes * Telephone Encounter - Nadja Redman RN - 12/20/2024 11:03 AM EST TC placed to patient. Patient c/o abd pain and large amount of bright red blood in her stool x 1 week. Patient denies any hx of hemorrhoids. RN advised patient to go to the ED for further evaluation.RN reported to the patient she may need additional imaging to find the source of the blood. Patientverbalized understanding and reported she will be going to [facility]. Protocol Used: Abdominal Pain - Female (Adult) Protocol-Based Disposition: Go to ED Now Positive Triage Questions: * Severe abdominal pain (e.g., excruciating) * Blood in bowel movements (Exception: Blood on surface of BM with constipation.) * All higher-acuity triage questions were negative Care Advice Discussed: * Rest * Drink Clear Fluids * Diet * Expected Course - Abdomen Pain * Reasons To Call Back - Severe pain lasts over 1 hour - Constant pain lasts over 2 hours - Intermittent pains (comes and goes, cramps) lasts over 48 hours - You become worse * Telephone Encounter - Chuck Enciso - 12/20/2024 10:37 AM EST Tc from pt returning call regarding message prior. * Telephone Encounter - Maliha Price RN - 12/20/2024 10:23 AM EST T/C to pt for triage based on portal message reporting bloody bowel movements and abdominal pain. No answer, v/m left to return call to triage nurses. documented in this encounter Plan of Treatment Upcoming Encounters Date Type Department Care Team (Late st Contact Info) Description 12/28/2024 10:00 AM EST Office Visit [facility] ADULT DENTAL [address] [place] [address] Lynn Cha DDS [address] [place] [address] 05/10/2025 9:30 AM EDT Office Visit [facility] ADULT DENTAL [address] [place] [address] Glenroy Kelley documented as of this encounter Visit Diagnoses Not on filedocumented in this encounter Additional Health Concerns Assessment Noted Time PHQ-9 Depression Total Score: 9 09/13/19 23 11:23 AM EDT documented as of this encounter Care Teams [employer] Installer Relationship Specialty Start Date End Date Katty Spears NP [address] [place] [address] PCP - General Family Medicine 10/20/23 documented as of this encounter
--- OUTSIDE RECORDS SUMMARY | 2024-12-20 18:43 | XMS_ITS | Encounter Summary ---
Author Organization [employer] Address [address] [facility] [address] [place] [address] Care Team Providers Care Instructional Support Services Director Name Role Phone Caty GabrielP Primary Care Provider [phone] Katty Spears NP Primary Care Provider [phone] Encounter Details Date Type Department Care Team (Late st Contact Info) Description 01/12/2023 Abstract [facility] MEDICINE [address] [place] [address] Estrellita Lugo Social History Tobacco Use Types [...] Description 12/28/2024 10:00 AM EST Office Visit [facility] ADULT DENTAL [address] [place] [address] Lynn Cha DDS [address] [place] [address] 05/10/2025 9:30 AM EDT Office Visit [facility] ADULT DENTAL [address] [place] [address] Glenroy Kelley documented as of this encounter Procedures Procedure Name Priority Date/Time Associated Diagnosis Comments PAP/HPV Routine 09/21/2019 documented in this encounter Results * Pap Smear (09/21/2019) Pap Negative for intraephithelial lesion or malignancy Negative for intraephithelial lesion or malignancy, Other HPV Undetected Undetected, Indeterminate, Quantitative, Not Detected Historical Provider HEALTH MAINTENANCE Final Result documented in this encounter Visit Diagnoses Not on filedocumented in this encounter Additional Health Concerns Assessment Noted Time PHQ-9 Depression Total Score: 9 09/13/19 23 11:23 AM EDT documented as of this encounter Care Teams Instructional Support Services Director Relationship Specialty Start Date End Date Caty Gabriel FNP [address] [place] [address] PCP - General Family Medicine 06/03/22 10/19/23 Katty Spears NP [address] [place] [address] PCP - General Family Medicine 10/20/23 documented as of this encounter
--- OUTSIDE RECORDS SUMMARY | 2024-12-20 18:43 | XMS_ITS | Encounter Summary ---
Author Organization [employer] Address [address] [facility] [address] [place] [address] Care Team Providers Care Transmitter Operator Name Role Phone Katty Spears NP Primary Care Provider [phone] Reason for Visit * Reason Onset Date Comments Referral 10/03/2024 Encounter Details Date Type Department Care Team ([facility] st Contact Info) Description 10/03/2024 Telephone [facility] MEDICINE [address] [place], [place] [phone] Katty Spears NP [address] [place], [place] [phone] Referral Social History Tobacco Use Types Packs/Day [...] symptoms. Pt denied triage. Contact pt at [phone] documented in this encounter Plan of Treatment Upcoming Encounters Date Type Department Care Team (Late st Contact Info) Description 12/28/2024 10:00 AM EST Office Visit [facility] ADULT D[facility] [address] [place] [address] Lynn Cha DDS [address] [place] [address] 05/10/2025 9:30 AM EDT Office Visit [facility] ADULT D[facility] [address] [place] [address] Glenroy Kelley documented as of this encounter Visit Diagnoses Not on filedocumented in this encounter Additional Health Concerns Assessment Noted Time PHQ-9 Depression Total Score: 9 09/13/19 23 11:23 AM EDT documented as of this encounter Care Teams Transmitter Operator Relationship Specialty Start Date End Date Katty Spears NP [address] [place] [address] PCP - General Family Medicine 10/20/23 documented as of this encounter
--- OUTSIDE RECORDS SUMMARY | 2024-12-20 18:43 | XMS_ITS | Encounter Summary ---
Author Organization [employer] Address [address] [place] [address] [address] [place] [address] Care Team Providers Care Jersey Knitter Name Role Phone Caty GabrielP Primary Care Provider [phone] Katty Spears NP Primary Care Provider [phone] Encounter Details Date Type Department Care Team (Late st Contact Info) Description 10/28/2022 Orders Only [facility] [address] [place] [address] Caty Gabriel FNP [address] [place] [address] Social History Tobacco Use Types Packs/Day Years [...] 12/28/2024 10:00 AM EST Office Visit [facility] ADULT D[facility] [address] [place] [address] Lynn Cha DDS [address] [place] [address] 05/10/2025 9:30 AM EDT Office Visit [facility] ADULT D[facility] [address] [place] [address] Glenroy Kelley documented as of this encounter Visit Diagnoses Not on filedocumented in this encounter Additional Health Concerns Assessment Noted Time PHQ-9 Depression Total Score: 9 09/13/19 23 11:23 AM EDT documented as of this encounter Care Teams Jersey Knitter Relationship Specialty Start Date End Date Caty Gabriel FNP [address] [place] [address] PCP - General Family Medicine 06/03/22 10/19/23 Katty Spears NP [address] [place] [address] PCP - General Family Medicine 10/20/23 documented as of this encounter
--- OUTSIDE RECORDS SUMMARY | 2024-12-20 18:44 | XMS_ITS | Clinical Summary ---
Author Organization [employer] Address [address] [place] [address] Care Team Providers Care Radiologic Technologist Chief Name Role Phone Katty Spears NP Primary Care Provider [phone] Allergies No known active allergies Medications acetaminophen [...] ONCE PER DAY. 90 tablet 5 Active Additional Information Patient not taking.Reported on 11/23/2024 fluticasone (Flonase) 50 MCG/ACT nasal sprayIndication s:Seasonal allergies SPRAY 1 TO 2 SPRAYS INTO EACH NOSTRIL EVERY DAY. SHAKE GENTLY. BEFORE FIRST USE, PRIME PUMP. AFTER USE, CLEAN TIP AND REPLACE CAP. 48 mL 5 Active amitriptyline (Elavil) 10 MG tablet TAKE 1 TABLET BY MOUTH AT BEDTIME 30 tablet 5 Active Active Problems Problem Noted Date Diagnosed [...] next one due 09/2024, she will call [facility] to schedule appointment. Eye exam: UTD, next [...] Encounters Date Type Department Care Team Description 12/20/2024 Orders Only [facility] External Provider, [facility] 12/20/[address] [address] Katty Spears, JAMESON Results 11/23/2024 10:00 AM EDT Office Visit [facility] ADULT DENTAL [address] [place] [address] Lynn Cha DDS 11/19/2024 Results Follow-Up [address] [address] Amandeep Giles MD XR Chest 2 Views, XR Lumbar Spine 2-3 Views 11/17/2024 Orders Only [facility] WALK-IN [address] [address] Amandeep Giles MD 11/16/2024 3:20 PM EDT Office Visit [facility] [address] [address] Amandeep Giles MD Chest pain, unspecified type (Primary Dx); Right leg numbness; Acute bilateral low back pain without sciatica; Essential hypertension 11/16/2024 Travel 11/16/[address] [address] Katty Spears NP Nurse Triage 11/09/2024 11:00 AM EDT Office Visit [facility] ADULT [facility] [address] [place] [address] Glenroy Kelley Dental calculus (Primary Dx) 10/14/2024 10:15 AM EDT Office Visit [address] [address] Katty Spears NP Chronic frontal sinusitis (Primary Dx); Visit for preventive health examination 10/14/2024 Travel 10/13/[address] [address] Marcin Washington [place] CHARTPREP 10/13/[address] [address] Katty Spears NP 10/13/2024 Refill [facility] WALK-IN [address] [address] Agatha Kelley MD Seasonal allergies 10/05/2024 1:30 PM EDT Office Visit [facility] ADULT DENTAL [address] [facility] [place] [address] Hiram Ruiz DMD History of tooth extraction, unspecified edentulism class (Primary Dx) 10/03/2024 Telephone [facility] MEDICINE [address] [place], [place] [phone] Katty Spears, JAMESON Referral from Last 3 Months Immunizations Immunization Administration Dates Next Due DTaP 06/15/1992, 9,1987,1987,1987 Hep B, Adolescent or Pediatric 11/25/1999,1999,04/25/1999 Hib ([facility]) 03/30/1989 IPV 06/15/1992, 9,1987,1987 Influenza injectable [...] Sign Reading Time Taken Comments Blood Pressure 122/62 11/23/2024 10:04 AM EDT Pulse 68 11/16/2024 3:53 PM EDT [...] Description 12/28/2024 10:00 AM EST Office Visit [facility] [address] [place] [address] Lynn Cha DDS [address] [place] [address] 05/10/2025 9:30 AM EDT Office Visit [facility] [address] [place] [address] Glenroy Kelley Health Maintenance Due Date Last Done Comments Family Planning (PISQ) 2002 HPV Vaccines (1 - 3-dose series) 2002 Cervical Cancer Screening 09/20/2024 HPV/Cotest 09/20/2024 09/21/2019 Pap Smear 09/20/2024 09/21/2019 Influenza Vaccine (#1) 2024 , 11/08/2021, 01/05/2020, Additional history exists Depression Monitoring 03/16/2025 09/13/2024, 023 Dental Oral Exam 05/10/2025 11/09/2024, , 10/30/2023, Additional history exists Dental Prophylaxis 05/10/2025 11/09/2024, 0 05/05/2024, 10/30/2023, Additional history exists Alcohol/Substance Use Screening 09/13/2025 09/13/2024 Disability Screening 09/13/2025 09/13/2024 SDOH Screening 09/13/2025 09/13/2024 Dental X-Ray: Bitewings 11/10/2025 11/10/19 25, 04/20/2024, 10/30/2023, Additional history exists Tobacco Screening 11/23/2025 11/23/2024 Dental X-Ray: Full Mouth 10/30/2026 024, 04/11/2016, [...] Procedure Name Priority Date/Time Associated Diagnosis Comments CT ABDOMEN PELVIS W CONTRAST Routine 12/20/2024 6:31 PM EST URINALYSIS, COMPLETE, WITH REFLEX TO CULTURE Routine 12/20/2024 5:53 PM EST HCG, TOTAL, QN Routine 12/20/2024 11:50 AM EST COMPREHENSIVE METABOLIC PANEL Routine 12/20/2024 11:50 AM EST PROTHROMBIN TIME-INR Routine 12/20/2024 11:50 AM EST CBC WITH AUTO DIFFERENTIAL Routine 12/20/2024 11:50 AM EST 15 MODL RESIN-BASED COMPOSITE - 4+ SURF, POSTERIOR Routine 11/23/2024 10:00 AM EDT CASE PRESENTATION, DETAILED AND EXTENSIVE TREATMENT PLANNING Routine 11/23/2024 10:00 AM EDT XR CHEST 2 VIEWS Routine 11/17/2024 11:5 7 AM EDT Chest pain, unspecified type XR LUMBAR SPINE 2-3 VIEWS Routine 11/17/2024 11:52 AM EDT Right leg numbness Acute bilateral low back pain without sciatica D DIMER HIGH SENSITIVITY Routine 11/17/2024 11:41 AM EDT ECG 12-LEAD Routine 11/16/2024 5:11 PM EDT Chest pain, unspecified type PERIODIC ORAL EVALUATION - ESTABLISHED PATIENT Routine 11/09/2024 11:00 AM EDT INTRAORAL - PERIAPICAL EACH ADDITIONAL RADIOGRAPHIC IMAGE [...] (ELEVATION/FORCEPS REMOVAL) Routine 10/05/2024 1:30 PM EDT HEPATITIS PANEL, GENERAL Routine 05/11/2024 9:33 AM EDT Migraine with aura and without status migrainosus, not intractable HIV 1/2 ANTIGEN/ANTIBODY, FOURTH GENERATION W/RFL Routine 05/11/2024 9:33 AM EDT Migraine with aura and without status migrainosus, not intractable LIPID PANEL WITH REFLEX TO DIRECT LDL Routine 05/11/2024 9:30 AM EDT Visit for preventive health examination Essential hypertension INTRAORAL - COMPLETE SERIES OF RADIOGRAPHIC IMAGES Routine 10/30/2023 10:30 AM EDT HM PAP/HPV Routine 09/21/2019 from Last 3 Months or Most Recently Relevant to Health Maintenance Results * CT Abdomen Pelvis w/ Contrast (12/20/2024 6:31 PM EST) Anatomical Region Laterality Modality Body, Pelvis, Abdomen Computed T omography 12/20/2024 6:31 PM EST Narrative 12/20/2024 6:33 PM EST [place] [address] CT Scan Report Signed Patient: Becca Espinoza MR#: [id number] : 1985 Acct:[id number] Age/Sex: 39 / F ADM Date: 12/20/24 Loc: .ED Attending Dr: Ordering Physician: Favio Marshall Date of Service: 12/20/24 Procedure(s): CT abdomen pelvis w IV con Accession Number(s): [id number] cc: Katty Spears ACADEMIC PROGRAM SPECIALIST; Favio Marshall Report Number: [id number]: Total DLP = 400.00 mGy-cm Reason for Exam: left lower abdominal pain, ?diverticulitis CLINICAL HISTORY: left lower abdominal pain, ?diverticulitis CT abdomen and pelvis with contrast Comparison: None provided Findings: Hiatal hernia. The liver and spleen are homogeneous in attenuation. The left and right kidney demonstrate symmetric corticomedullary enhancement. Left renal interpolar region 0.4 cm nonobstructing nephrolith. The pancreas is homogeneous in attenuation without main pancreatic ductal dilatation. The adrenals are within normal limits. Segmental mural thickening of the ascending colon, axial image number 38 of 79. No bowel obstruction. The appendix is within normal limits. The uterus is hypertrophic with para adnexal varicosities. Small amount of free fluid in the cul-de-sac. No acute fracture. IMPRESSION: 1. Segmental mural thickening of the ascending colon; decompression artifact versus colitis of the ascending colon. 2. Hiatal hernia. 3. 0.4 cm nonobstructing left renal nephrolith. 4. Hypertrophic uterus with para-adnexal varicosities; pelvic congestion syndrome can not be excluded. 5. No acute intraabdominal or pelvic findings. This document has been electronically signed by: Bautista Heath MD on 12/20/2024 18:31:26 Dictated By: Bautista Heath MD Signed By: <Electronically signed by Bautista Heath MD in OV> 12/20/241831 DD/ 30 TD/TT: 12/20/241830 Licensed Home Inspector: Procedure Note Donotuseinterpreter, Image - 12/20/[address] [place] [address] [address] Scan Report Signed Patient: Meryl Espinoza#: [id number] : 1985Acct:[id number] Age/Sex: 39 / FADM Date: 12/20/24 Loc: .ED Attending Dr: Ordering Physician: Favio Marshall Date of Service: 12/20/24 Procedure(s): CT abdomen pelvis w IV con Accession Number(s): [id number] cc: Katty Spears ACADEMIC PROGRAM SPECIALIST; Favio Marshall Report Number: [id number]: Total DLP = 400.00 mGy-cm Reason for Exam: left lower abdominal pain, ?diverticulitis CLINICAL HISTORY: left lower abdominal pain, ?diverticulitis CT abdomen and pelvis with contrast Comparison: None provided Findings: Hiatal hernia. The liver and spleen are homogeneous in attenuation. The left and right kidney demonstrate symmetric corticomedullary enhancement. Left renal interpolar region 0.4 cm nonobstructing nephrolith. The pancreas is homogeneous in attenuation without main pancreatic ductal dilatation. The adrenals are within normal limits. Segmental mural thickening of the ascending colon, axial image number 38 of 79. No bowel obstruction. The appendix is within normal limits. The uterus is hypertrophic with para adnexal varicosities. Small amount of free fluid in the cul-de-sac. No acute fracture. IMPRESSION: 1. Segmental mural thickening of the ascending colon; decompression artifact versus colitis of the ascending colon. 2. Hiatal hernia. 3. 0.4 cm nonobstructing left renal nephrolith. 4. Hypertrophic uterus with para-adnexal varicosities; pelvic congestion syndrome can not be excluded. 5. No acute intraabdominal or pelvic findings. This document has been electronically signed by: Bautista Heath MD on 12/20/2024 18:31:26 Dictated By: Bautista Heath MD Signed By: <Electronically signed by Bautista Heath MD in OV> 12/20/241831 DD/ 30 TD/TT: 12/20/241830 Licensed Home Inspector: [facility] External Provider IMG CT PROCEDURES Final Result * (ABNORMAL) Urinalysis, Complete, with Reflex to Culture (12/20/2024 5:53 PM EST) Color Urine Yellow [facility] Appearance Urine Cloudy [facility] PH 7.0 5.0 - 9.0 [facility] Glucose Urine UA Negative Negative mg/dL [facility] Urine Blood Trace(A) Negative [facility] Specific Realitos - Urine 1.020 1.005 - 1.025 [facility] Urine Protein Negative Neg-Trace mg/dL [facility] Urine Ketones Negative Negative mg/dL [facility] Nitrite Urine Negative Negative [facility] Leukocyte Esterase Urine Negative Negative [facility] RBC Urine 6-10(A) 0 - 2 /HPF [facility] Urine WBC 0-5 0 - 5 /HPF [facility] Urine Squamous Epithelial Cell 6-10 0 - 2 /HPF [facility] Urine Bacteria 1+ None Seen [facility] Hyaline Casts, Urine 0-2 0 - 2 /LPF [facility] 12/20/2024 5:53 PM EST 12/20/2024 6:03 PM EST Narrative [facility] - 12/20/2024 6:11 PM EST [id number], Clean Catch Generic External Data Provider LAB URINE ORDERAB LES Final Result [facility] [address] [place], [place] [phone] * (ABNORMAL) CBC auto differential (12/20/2024 11:50 AM EST) White Blood Count 6.3 4.8 - 10.8 X10*3/uL [facility] Red Blood Count 4.23 4.20 - 5.50 X10*6/uL [facility] Hemoglobin 11.9(L) 12.0 - 16.0 g/dl [facility] Hematocrit 36.9(L) 37.0 - 47.0 % [facility] Mean Corpuscular Volume 87.2 80.0 - 98.0 fL [facility] Mean Corpuscular Hemoglobin 28.1 27.0 - 33.0 pg [facility] Mean Corpuscular HGB Conc 32.2 31.0 - 35.0 g/dl [facility] Red Cell Distribution Width 13.1 11.0 - 16.0 % [facility] Platelet Count 260 160 - 400 X10*3/uL [facility] Mean Platelet Volume 9.0(L) 9.4 - 12.3 fL [facility] Neutrophils Percent Auto 64.0 45 - 73 % [facility] Imm Gran Pct Auto 0.3 0.0 - 0.4 % [facility] Lymphocytes Percent Auto 29.1 20 - 40 % [facility] Monocytes Percent Auto 5.5 2 - 11 % [facility] Eosinophils Percent Auto 0.8 0 - 4 % [facility] Basophils Percent Auto 0.3 0 - 2 % [facility] NRBC Pct Auto 0.0 0.0 - 0.2 /100WBC [facility] Neutrophils Absolute Auto 4.0 2.0 - 8.3 x10*3/uL [facility] Imm Gran Abs Auto 0.02 0.00 - 0.03 X10*3/uL [facility] Lymphocytes Absolute Auto 1.8 1.2 - 4.9 X10*3/uL [facility] Monocytes Absolute Auto 0.4 0.1 - 1.2 X10*3/uL [facility] Eosinophils Absolute Auto 0.1 0.0 - 0.4 X10*3/uL [facility] Basophils Absolute Auto 0.0 0.0 - 0.2 X10*3/uL [facility] NRBC Abs Auto 0.000 0.0 - 0.012 X10*3/uL [facility] 12/20/2024 11:5 0 AM EST 12/20/2024 11:53 AM EST Generic External Data Provider LAB BLOOD ORDERAB LES Final Result Performing Organization Address [facility] Co de Phone Number [facility] [address] [place] [phone] * Prothrombin Time-INR (12/20/2024 11:50 AM EST) [facility] Prothrombin Time 12.1 10.9 - 12.4 SEC [facility] INTERNATIONAL NORM RATIO 1.1 0.9 - 1.1 [facility] Comment:INTERNATIONAL NORMAL IZED RATIO (INR) REFERENCE RANGES Reference RangeFor patients not on anticoagulant therapy: 0.9 - 1.1INR ranges for oral anticoagulanttherapy:For prevention and treatment of venous thrombosis and pulmonary embolism: 2.0 - 3.0For acute myocardial infarction with aspirin therapy: 2.0 - 3.0For acute myocardial infarction without aspirin therapy: 3.0 - 4.0For patients with mechanical prosthetic heart valves: 2.5 - 3.5 12/20/2024 11:5 0 AM EST 12/20/2024 11:53 AM EST Generic External Data Provider LAB BLOOD ORDERAB LES Final Result Performing Organization Address [facility] Co de Phone Number [facility] [address] [place] [phone] * hCG, Total, Quantitative (12/20/2024 11:50 AM EST) Pathologist [facility] HCG Quantitative <2 mIU/mL [facility] Comment:Weeks post LMP Appr oximate hCG(Last Menstrual Period) Range (mIU/ml)3 - 4 weeks 9 - 1304 - 5 weeks 75 - 2,6005 - 6 weeks 850 - 20,8006 - 7 weeks 4000 - 100,2007 - 12 weeks 11,500 - 289,07999 - 16 weeks 18,300 - 137,55461 - 29 weeks (2nd trimester) 1,400 - 53,97679 - 41 weeks (3rd trimester) 940 - 60,000The Fu B-hCG assay is used for the early detection ofpregnancy; it cannot be used to diagnose any conditionunrelated to . If a B-hCG level is not supportedby the clinical evidence, results should be confirmed by analternative method (qualitative urine hCG, for example). 12/20/2024 11:5 0 AM EST 12/20/2024 11:53 AM EST us Generic External Data Provider LAB BLOOD ORDERAB LES Final Result [facility] [address] [place] [phone] * (ABNORMAL) Comprehensive Metabolic Panel (12/20/2024 11:50 AM EST) Sodium 141 135 - 145 mmol/L [facility] Potassium 3.4 3.3 - 5.1 mmol/L [facility] Chloride 105 96 - 108 mmol/L [facility] Carbon Dioxide 30(H) 22 - 29 mmol/L [facility] Anion Gap 9(L) 12 - 20 [facility] Urea Nitrogen (BUN) 10 9 - 16 mg/dL [facility] Creatinine, Serum 0.68 0.5 - 1.4 mg/dL [facility] Creatinine Clr Calc Pharmacy 101.9 [facility] Comment:Provided height and weight: 165.1 cm,65.9 kg.eGFR (calculated from the MDRD study equation) and eCrCl(calculated from the Cockcroft-Gault equation) are based ondifferent parameters and may not yield comparable results.If eCrCl result is absurd, please check patient'sheight/weight. Estimated Glomerular Filt Rate >60 [facility] Comment:Chronic Kidney Disea se: Estimated GFR < 60 mL/min/1.07f9Ddhixz Kidney Disease: Estimated GFR < 15 mL/min/1.73m2 Glucose 116(H) 60 - 115 mg/dL [facility] Calcium 9.2 8.4 - 10.2 mg/dL [facility] Bilirubin, Total 0.6 0.0 - 1.0 mg/dL [facility] Aspartate Amino Transferase 22 5 - 31 U/L [facility] Alanine Aminotransferase 14 0 - 31 U/L [facility] Total Protein 7.6 6.5 - 8.0 g/dL [facility] Albumin Level 4.3 3.5 - 5.0 g/dL [facility] Alkaline Phosphatase 72 39 - 117 U/L [facility] 12/20/2024 11:5 0 AM EST 12/20/2024 11:53 AM EST us Generic External Data Provider LAB BLOOD ORDERAB LES Final Result Performing Organization Address City/State/[facility] Co de Phone Number [facility] [address] [place] [phone] * XR Chest 2 Views (11/17/2024 11:57 AM EDT) Anatomical Region Laterality Modality Chest Radiographic Melany ging 11/17/2024 11:5 7 AM EDT Narrative 11/17/2024 12:18 PM EDT [address] [address] XRay Report Signed Patient: Becca Espinoza MR#: [id number] : 1985 Acct:[id number] Age/Sex: 39 / F ADM Date: 11/17/24 Loc: FLAKITA Attending Dr: Amandeep Giles MD Ordering Physician: AMANDEEP GILES MD Date of Service: 11/17/24 Procedure(s): XR chest 2V Accession Number(s): [id number] cc: AMANDEEP GILES MD; Katty Spears ACADEMIC PROGRAM SPECIALIST Reason for Exam: left anterior chest pain [...] 11/17/24 1215 DD/ 1157 TD/TT: 11/17/24 1203 Licensed Home Inspector: Procedure Note Donotuseinterpreter, Image - 11/17/2024 [place] [address] XRay Report Signed Patient: Meryl Espinoza#: [id number] : 1985Acct:[id number] Age/Sex: 39 / FADM Date: 11/17/24 Loc: FLAKITA Attending Dr: Amandeep Giles MD Ordering Physician: AMANDEEP GILES MD Date of Service: 11/17/24 Procedure(s): XR chest 2V Accession Number(s): [id number] cc: AMANDEEP GILES MD; Katty Spears ACADEMIC PROGRAM SPECIALIST Reason for Exam: left anterior chest pain [...] 11/17/24 1215 DD/ 1157 TD/TT: 11/17/24 1203 Licensed Home Inspector: Amandeep Giles MD IMG XR PROCEDURES Edited Result - Final * XR Lumbar Spine 2-3 Views (11/17/2024 11:52 AM EDT) Anatomical Region Laterality Modality Spine, L-spine Radiographic Melany ging 11/17/2024 11:5 2 AM EDT Narrative 11/23/2024 9:49 AM EDT [address] [address] XRay Report Signed Patient: Becca Espinoza MR#: [id number] : 1985 Acct:[id number] Age/Sex: 39 / F ADM Date: 11/17/24 Loc: HO.XRAY Attending Dr: Amandeep Giles MD Ordering Physician: AMANDEEP GILES MD Date of Service: 11/17/24 Procedure(s): XR lumbar spine 2-3V Accession Number(s): [id number] cc: AMANDEEP GILES MD; Katty Spears NP Reason for Exam: PAIN EXAMINATION: XR LUMBOSACRAL SPINE CLINICAL INFORMATION: PAIN COMPARISON: None available. TECHNIQUE: 4 views FINDINGS: There appears to be transitional anatomy. There appears to be 6 nonrib-bearing lumbar vertebral bodies. For the purpose of this study, the lowermost nonrib-bearing vertebral body is designated as L5. Vertebral body heights are maintained. No evidence of acute fracture or spondylolisthesis. Disc spaces are maintained. No worrisome lytic or blastic lesions. SI joints are intact. Paraspinal soft tissues appear unremarkable. No abnormal soft tissue calcifications. XR/XR lumbar spine 2-3V IMPRESSION: There appears to be transitional anatomy. Recommend close correlation prior to any intervention/procedure. No radiographic evidence of acute fracture or spondylolisthesis. Electronically signed by: Jeet Hurtado MD 11/23/2024 09:46 AM EDT Dictated By: Jeet Hrutado MD Signed By: <Electronically signed by Jeet Hurtado MD in OV> 11/23/24945 DD/ 1152 TD/TT: 11/17/24 120 Licensed Home Inspector: SHIRA Procedure Note Donotjosesitointerpreter, Image - 11/23/[address] [address] XRay Report Signed Patient: Meryl Espinoza#: [id number] : 1985Acct:[id number] Age/Sex: 39 / FADM Date: 11/17/24 Loc: HO.XRAY Attending Dr: Amandeep Giles MD Ordering Physician: AMANDEEP GILES MD Date of Service: 11/17/24 Procedure(s): XR lumbar spine 2-3V Accession Number(s): [id number] cc: AMANDEEP GILES MD; Katty Spears NP Reason for Exam: PAIN EXAMINATION: XR LUMBOSACRAL SPINE CLINICAL INFORMATION: PAIN COMPARISON: None available. TECHNIQUE: 4 views FINDINGS: There appears to be transitional anatomy. There appears to be 6 nonrib-bearing lumbar vertebral bodies. For the purpose of this study, the lowermost nonrib-bearing vertebral body is designated as L5. Vertebral body heights are maintained. No evidence of acute fracture or spondylolisthesis. Disc spaces are maintained. No worrisome lytic or blastic lesions. SI joints are intact. Paraspinal soft tissues appear unremarkable. No abnormal soft tissue calcifications. XR/XR lumbar spine 2-3V IMPRESSION: There appears to be transitional anatomy. Recommend close correlation prior to any intervention/procedure. No radiographic evidence of acute fracture or spondylolisthesis. Electronically signed by: Jeet Hurtado MD 11/23/2024 09:46 AM EDT Dictated By: Jeet Hurtado MD Signed By: <Electronically signed by Jeet Hurtado MD in OV> 11/23/24945 DD/ 51 TD/TT: 11/17/24 120 Licensed Home Inspector: SHIRA Amandeep Giles MD IMG XR PROCEDURES Final Result * D Dimer High Sensitivity (11/17/2024 11:41 AM EDT) Pathologist [facility] D Dimer High Sensitivity <150 NG/ML [facility] Comment:D-DIMER HS REFERENCE RANGENote: Our [...] MD LAB BLOOD ORDERABLES Final Resul t [facility] [address] [place] [phone] * ECG 12 lead (11/16/2024 5:11 [...] normal Q waves: Abnormal Q-waves: not present Amnadeep Giles MD ECG ORDERABLES Final Result * Hepatitis Panel, General (05/11/2024 9:33 AM EDT) Pathologist [facility] Hepatitis A IgM Nonreactive Nonreactive [facility] Comment:IgM antibodies to POWERS V not detected; does not exclude earlyacute or recovered HAV infection. ~Hepatitis B Surface Antibody REACTIVE Nonreactive [facility] Comment:REACTIVE: > 11.99 mI U/mL Hepatitis B Core Antibody Nonreactive Nonreactive [facility] Hepatitis C Antibody Nonreactive Nonreactive [facility] Comment:Antibodies to HCV no t detected; does not exclude early acuteHCV infection. Hepatitis B Surface Ag Negative Negative [facility] Blood 05/11/2024 9:33 AM EDT 05/11/2024 11:06 AM EDT us Mimi Huston MD LAB BLOOD ORDERABLES Fin al Result Performing Organization Address [facility]/ZIP Co de Phone Number [facility] [address] [place] [phone] * HIV-1/2 Antigen and Antibodies, Fourth Generation, with Reflexes (05/11/2024 9:33 AM EDT) [facility] HIV AB/AG Nonreactive Nonreactive [facility] Comment:HIV-1 p24 Ag and/or HIV-1/HIV-2 Ab not detected.A test result that is nonreactive does not exclude thepossibility of exposure to or infection with HIV-1 and/orHIV-2. Nonreactive results in this assay for individualswith prior exposure to HIV-1 and/or HIV-2 may be due toantigen and antibody levels that are below the limit ofdetection of this assay.The [employer] HIV Ag/Ab Combo assay result andsupplemental assay results should be interpreted inconjunction with the patient's clinical presentation,history and other laboratory results. If the results areinconsistent with clinical evidence, additional testing issuggested to confirm the result. Blood Venous blood specimen / Unknown 05/11/2024 9:33 AM EDT 05/11/2024 11:06 AM EDT us Mimi Huston MD LAB BLOOD ORDERABLES Fin al Result Performing Organization Address [facility]/ZIP Co de Phone Number [facility] [address] [place] [phone] * Lipid Panel with Reflex to Direct LDL (05/11/2024 9:30 AM EDT) Triglycerides 114 <150 mg/dL [facility] Comment:Desirable Triglyceri de: less than 150 mg/dLBorderline High Triglyceride 150-199 mg/dLHigh Triglyceride: 200-499 mg/dLVery High Triglyceride: greater than or equal to 5OO mg/dL Cholesterol 172 <200 mg/dL [facility] Comment:Desirable Cholestero l: less than 200 mg/dLBorderline High Cholesterol: 200-239 mg/dLHigh Cholesterol: greater than 239 mg/dL LDL Cholesterol Calculated 98 <100 mg/dL [facility] Comment:Desirable LDL: less than 100 mg/dLNear Optimal/Above Optimal LDL: 110- 129 mg/dLBorderline High LDL: 130-159 mg/dLHigh LDL: 160-189 mg/dLVery High LDL: greater than or equal to 190 mg/dL HDL Cholesterol 52 >40 mg/dL [facility] Comment:Desirable HDL: great er than 40 mg/dL Note: This HDL assay may give artificially low results in patients with liver disease. Blood 05/11/2024 9:30 AM EDT 05/11/2024 11:06 AM EDT Mimi Huston MD LAB BLOOD ORDERABLES Fin al Result [facility] [address] [place] [address] [phone] * Pap Smear (09/21/2019) Pap Negative for intraephithelial lesion or malignancy Negative for intraephithelial lesion or malignancy, Other HPV Undetected Undetected, Indeterminate, Quantitative, Not Detected Megan Provider HEALTH MAINTENANCE Final Result from Last 3 Months or Most Recently Relevant to Health Maintenance Insurance [employer] C3 [facility] MEDICAID STAND ADULT Care Teams Radiologic Technologist Chief Relationship Specialty Start Date End Date Katty Spears NP [address] [place] [id number] PCP - General Family Medicine 10/20/23
[2024-12-20 18:51] VITALS: BP 145/80; PULSE 72; RESP 18; TEMP 36.6; O2SAT 99
== END 2024-12-20 18:52 | disposition home or self-care (01) ==
PROVIDERS: Physician Assistant; Registered Nurse Emergency; Emergency Provider Emergency Medicine; PCP Nurse Practitioner Family
DX: K62.5 Hemorrhage of anus and rectum (principal); R10.32 Left lower quadrant pain
CPT/HCPCS: 36415; 74177; 80053; 81001; 82272; 84702; 85025; 85610; 99283; 99285; Q9967

== ENCOUNTER → 2024-12-20 17:34 | Outpatient (BNV) | payer MEDICAID, SELFPAY | PROVIDERS: Emergency Provider Emergency Medicine; PCP Nurse Practitioner Family; Visit Provider Radiology Diagnostic Radiology | DX: K44.9 Diaphragmatic hernia without obstruction or gangrene (principal); N20.0 Calculus of kidney; N85.2 Hypertrophy of uterus | CPT/HCPCS: 74177 ==

== ENCOUNTER 2024-12-27 17:32 | Outpatient (REF) | payer MEDICAID, SELFPAY ==
--- OUTSIDE RECORDS SUMMARY | 2024-12-27 15:30 | XMS_ITS | Encounter Summary ---
Author Organization [employer] Address [address] [facility] 7t [place] [address] Care Team Providers Care Earth Science Technical Officer Name Role Phone Katty Spears NP Primary Care Provider [phone] Reason for Referral * Consultation (Routine) - Pending Review Specialty Diagnoses / Procedures Referred By Contraad t Referred To Contact Gastroenterology Diagnoses Functional diarrhea Katty Spears NP [address] [place] [address] Phone: tel: fax: Referral ID Status Reason Start Date Expiration Date Visits Requested Visits Authorized [id number] Pending Review Specialty Services Required 5 12/27/2025 1 1 Encounter Details Date Type Department Care Team (Late st Contact Info) Description 12/27/2024 3:30 PM EST Office Visit [facility] MEDICINE [address] [place], [place] [phone] Katty Spears NP [address] [place] [address] Functional diarrhea (Primary Dx); Encounter for immunization Social History Tobacco Use Types Packs/Day Years [...] Sign Reading Time Taken Comments Blood Pressure 142/89 12/27/2024 3:18 PM EST Pulse 86 12/27/2024 3:18 PM EST Temperature 36.7 C (98 F) 12/27/2024 3:18 PM EST Respiratory Rate 16 12/27/2024 3:18 PM EST Oxygen Saturation 98% 12/27/2024 3:18 PM EST Inhaled Oxygen Concentration - - Weight 65 kg (143 lb 3.2 oz) 12/27/2024 3:18 PM EST Height 165.1 cm (5' 5 ) 12/27/2024 3:18 PM EST Body Mass Index 23.83 12/27/2024 3:18 PM EST documented in this encounter Miscellaneous Notes * Assessment & Plan Note - Katty Spears NP - 12/27/2024 3:30 PM ESTAssociated Problem(s): Functional diarrhea Orders: Helicobacter pylori Antigen, EIA, Stool; Future Referral to Gastroenterology; Future documented in this encounter Plan of Treatment Upcoming Encounters Date Type Department Care Team (Late st Contact Info) Description 12/28/2024 10:00 AM EST Office Visit [facility] ADULT DENTAL [address] [place] [address] Lynn Cha DDS [address] [place] [address] 05/10/2025 9:30 AM EDT Office Visit [facility] ADULT DENTAL [address] [place] [address] Glenroy Kelley Scheduled Orders Name Type Priority Associated Diagnoses Orde r Schedule Helicobacter pylori, Urea Breath Test Lab Routine Functional diarrhea Expected: 12/27/2024 (Approximate), Expires: 12/27/2025 Scheduled Referrals Name Type Priority Associated Diagnoses Order Schedule Referral to Gastroenterology Outpatient Referral Routine Functional diarrhea Expected: 12/27/2024 (Approximate), Expires: 12/27/2025 documented as of this encounter Visit Diagnoses Diagnosis Functional diarrhea- Primary Encounter for immunization documented in this encounter Additional Health Concerns Assessment Noted Time PHQ-9 Depression Total Score: 9 09/13/19 23 11:23 AM EDT documented as of this encounter Care Teams Earth Science Technical Officer Relationship Specialty Start Date End Date Katty Spears NP [address] [place] [address] PCP - General Family Medicine 10/20/23 documented as of this encounter
--- OUTSIDE RECORDS SUMMARY | 2024-12-27 17:34 | XMS_ITS | Encounter Summary ---
Author Organization [employer] Address [address] [place] [address] 7t [place] [address] Care Team Providers Care Fish Processor Name Role Phone Caty GabrielP Primary Care Provider [phone] Katty Spears NP Primary Care Provider [phone] Encounter Details Date Type Department Care Team (Late st Contact Info) Description 10/28/2022 Orders Only [facility] MED & PEDS [address] [place] [address] Caty Gabriel FNP [address] [place] [address] Social History Tobacco Use Types Packs/Day Years [...] [facility] ADULT DENT[facility] [address] [place] [address] Lynn Cha DDS [address] [place] [address] 05/10/2025 9:30 AM EDT Office Visit [facility] ADULT DENTAL [address] [place] [address] Glenroy Kelley documented as of this encounter Visit Diagnoses Not on filedocumented in this encounter Additional Health Concerns Assessment Noted Time PHQ-9 Depression Total Score: 9 09/13/19 23 11:23 AM EDT documented as of this encounter Care Teams Fish Processor Relationship Specialty Start Date End Date Caty Gabriel FNP [address] [place] [address] PCP - General Family Medicine 06/03/22 10/19/23 Katty Spears NP [address] [place] [address] PCP - General Family Medicine 10/20/23 documented as of this encounter
--- OUTSIDE RECORDS SUMMARY | 2024-12-27 17:34 | XMS_ITS | Encounter Summary ---
Author Organization [employer] Address [address] 7[address] [place] [address] Care Team Providers Care Environmental Inspector Name Role Phone Katty Spears NP Primary Care Provider [phone] Encounter Details Date Type Department Care Team (Latest Contact Info) Description 12/27/2024 Travel Social History Tobacco Use Types Packs/Day [...] Description 12/28/2024 10:00 AM EST Office Visit [facility] ADULT DENTAL [address] [place] [address] Lynn Cha DDS [address] [place] [address] 05/10/2025 9:30 AM EDT Office Visit [facility] ADULT DENTAL [address] [place] [address] Glenroy Kelley documented as of this encounter Visit Diagnoses Not on filedocumented in this encounter Additional Health Concerns Assessment Noted Time PHQ-9 Depression Total Score: 9 09/13/19 23 11:23 AM EDT documented as of this encounter Care Teams Environmental Inspector Relationship Specialty Start Date End Date Katty Spears NP [address] [place] [address] PCP - General Family Medicine 10/20/23 documented as of this encounter
--- OUTSIDE RECORDS SUMMARY | 2024-12-27 17:34 | XMS_ITS | Encounter Summary ---
Author Organization [employer] Address [address] [facility] 7t [place] [address] Care Team Providers Care Film Replacement Orderer Name Role Phone Molina Haydee PEREZ Primary Care Provider [phone] Kika Maya FOUNDER AND CHIEF EXECUTIVE OFFICER Primary Care Provider Ayse Mckeon FOUNDER AND CHIEF EXECUTIVE OFFICER Primary Care Provider [phone] Caty Gabriel FOUNDER AND CHIEF EXECUTIVE OFFICER Primary Care Provider [phone] Katty Spears NP Primary Care Provider [phone] Encounter Details Date Type Department Care Team (Latest Contact Info) Description 07/23/2018 Abstract [facility] CONVERSIONS Dental, Provider, DDS Social History [...] Description 12/28/2024 10:00 AM EST Office Visit [facility] ADULT DENTAL [address] [place], [place] [phone] Lynn Cha DDS [address] [place] [address] 05/10/2025 9:30 AM EDT Office Visit [facility] ADULT DENTAL [address] [place] [address] Glenroy Kelley documented as of this encounter Visit Diagnoses Not on filedocumented in this encounter Care Teams Film Replacement Orderer Relationship Specialty Start Date End Date Haydee Auguste ANP [address] [place] [address] PCP - General Family Medicine 10/10/21 03/19/22 Kika Maya FNP [address] [place] [address] PCP - General Family Medicine 03/20/22 04/16/22 Ayse Choi FNP [address] [place] [address] PCP - General Family Medicine 04/17/22 06/02/22 Caty Gabriel FNP [address] [place] [address] PCP - General Family Medicine 06/03/22 10/19/23 Katty Spears NP [address] [place] [address] PCP - General Family Medicine 10/20/23 documented as of this encounter
--- OUTSIDE RECORDS SUMMARY | 2024-12-27 17:34 | XMS_ITS | Encounter Summary ---
Author Organization [employer] Address [address] [facility] 7t [place] [address] Care Team Providers Care Overnight Houseperson Name Role Phone Katty Spears NP Primary Care Provider [phone] Reason for Visit * Reason Onset Date Comments Nurse Triage 11/16/2024 Encounter Details Date Type Department Care Team ([facility] st Contact Info) Description 11/16/2024 Telephone [facility] MEDICINE [address] [place], [place] [phone] Katty Spears NP [address] [place], [place] [phone] Nurse Triage Social History Tobacco Use Types [...] available Pt is advised to come to [facility] to be seen by provider and agrees [...] caller accepted this outcome. Contact pt at [phone] documented in this encounter Plan of Treatment Upcoming Encounters Date Type Department Care Team ([facility] st Contact Info) Description 12/28/2024 10:00 AM EST Office Visit [facility] ADULT DENTAL [address] [place] [address] Lynn Cha DDS [address] [place] [address] 05/10/2025 9:30 AM EDT Office Visit [facility] ADULT DENTAL [address] [place] [address] Glenroy Kelley documented as of this encounter Visit Diagnoses Not on filedocumented in this encounter Additional Health Concerns Assessment Noted Time PHQ-9 Depression Total Score: 9 09/13/19 23 11:23 AM EDT documented as of this encounter Care Teams Overnight Houseperson Relationship Specialty Start Date End Date Katty Spears NP [address] [place] [address] PCP - General Family Medicine 10/20/23 documented as of this encounter
--- OUTSIDE RECORDS SUMMARY | 2024-12-27 17:34 | XMS_ITS | Encounter Summary ---
Author Organization [employer] Address [address] [facility] [address] [place] [address] Care Team Providers Care Plate Finisher Name Role Phone Caty GabrielP Primary Care Provider [phone] Katty Spears NP Primary Care Provider [phone] Encounter Details Date Type Department Care Team (Late st Contact Info) Description 01/12/2023 Abstract [facility] MEDICINE [address] [place] [address] Estrellita Lugo Social History Tobacco Use Types [...] Description 12/28/2024 10:00 AM EST Office Visit [facility] ADULT DENTAL [address] [place] [address] Lynn Cha DDS [address] [place] [address] 05/10/2025 9:30 AM EDT Office Visit [facility] ADULT DENTAL [address] [place] [address] Glenroy Kelley documented as of this encounter [...] documented as of this encounter Care Teams Plate Finisher Relationship Specialty Start Date End Date Caty Gabriel FNP [address] [place] [address] PCP - General Family Medicine 06/03/22 10/19/23 Katty Spears NP [address] [place] [address] PCP - General Family Medicine 10/20/23 documented as of this encounter
--- OUTSIDE RECORDS SUMMARY | 2024-12-27 17:34 | XMS_ITS | Clinical Summary ---
Author Organization [facility] Address [address] [facility] [address] [place] [address] Phone Care Team Providers Care Boarder Steam Name Role Phone Sunil Ly MD Primary Care Provider [phone] Allergies No known active allergies Medications ACNE [...] , 10/25/2014, 04/25/1999 HIB VACCINES Completed 03/30/1989 IPV VACCINES Completed 06/15/1992, 08/0 09/1988, 1987, Additional history exists SMOKING STATUS SCREENING (Once After 26 Yrs) [...] topic Medical Devices Not on file Insurance [facility] C3 [facility] [facility] [employer] [facility] [place] [address] [address] [place] [address] [place] [address] [place] [address] [place] [address] [place] [address] C3 [employer] Care Teams Boarder Steam Relationship Specialty Start Date End Date Sunil Ly MD [address] [place] [address] PCP - General Pediatrics 05/20/17 Additional Source Comments The information contained in this document represents components of the legal health record. It is not the complete legal health record.[facility]
--- OUTSIDE RECORDS SUMMARY | 2024-12-27 17:34 | XMS_ITS | Encounter Summary ---
Author Organization [employer] Address [address] [facility] 7t [place] [address] Care Team Providers Care Barber Tool Sharpener Name Role Phone Caty GabrielP Primary Care Provider [phone] Katty Spears NP Primary Care Provider [phone] Reason for Visit * Reason Onset Date Comments Med Refill 11/10/2022 Encounter Details Date Type Department Care Team (Late Contact Info) Description 11/10/2022 Refill [facility] MED & PEDS [address] [place] [address] Caty Gabriel FNP [address] [facility] [place] [address] Social History Tobacco Use Types Packs/Day Years [...] Visit [facility] ADULT DENTAL [address] [place] [address] Lynn Cha DDS [address] [place] [address] 05/10/2025 9:30 AM EDT Office Visit [facility] ADULT DENTAL [address] [place] [address] Glenroy Kelley documented as of this encounter Visit Diagnoses Not on filedocumented in this encounter Additional Health Concerns Assessment Noted Time PHQ-9 Depression Total Score: 9 09/13/19 23 11:23 AM EDT documented as of this encounter Care Teams Barber Tool Sharpener Relationship Specialty Start Date End Date Caty Gabriel FNP [address] [place] [address] PCP - General Family Medicine 06/03/22 10/19/23 Katty Spears NP [address] [place] [address] PCP - General Family Medicine 10/20/23 documented as of this encounter
--- OUTSIDE RECORDS SUMMARY | 2024-12-27 17:34 | XMS_ITS | Encounter Summary ---
Author Organization [employer] Address [address] [facility] 7t [place] [address] Care Team Providers Care Nutrition Educator Name Role Phone Katty Spears NP Primary Care Provider [phone] Reason for Visit * Reason Onset Date Comments Referral 10/03/2024 Encounter Details Date Type Department Care Team ([facility] st Contact Info) Description 10/03/2024 Telephone [facility] MEDICINE [address] [place], [place] [phone] Katty Spears NP [address] [place], [place] [phone] Referral Social History Tobacco Use Types Packs/Day [...] symptoms. Pt denied triage. Contact pt at [phone] documented in this encounter Plan of Treatment Upcoming Encounters Date Type Department Care Team (Late st Contact Info) Description 12/28/2024 10:00 AM EST Office Visit [facility] ADULT DENTAL [address] [place] [address] Lynn Cha DDS [address] [place] [address] 05/10/2025 9:30 AM EDT Office Visit [facility] ADULT DENTAL [address] [place] [address] Glenroy Kelley documented as of this encounter Visit Diagnoses Not on filedocumented in this encounter Additional Health Concerns Assessment Noted Time PHQ-9 Depression Total Score: 9 09/13/19 23 11:23 AM EDT documented as of this encounter Care Teams Nutrition Educator Relationship Specialty Start Date End Date Katty Spears NP [address] [place] [address] PCP - General Family Medicine 10/20/23 documented as of this encounter
--- OUTSIDE RECORDS SUMMARY | 2024-12-27 17:34 | XMS_ITS | Encounter Summary ---
Author Organization [employer] Address [address] [facility] 7t [place] [address] Care Team Providers Care Stereoplotter Operator Name Role Phone Katty Spears NP Primary Care Provider [phone] Reason for Visit * Reason Onset Date Comments Chart Prep 12/26/2024 Encounter Details Date Type Department Care Team ([facility] st Contact Info) Description 12/26/2024 Telephone [facility] MEDICINE [address] [place], [place] [phone] Katty Spears NP [address] [place] [address] Chart Prep Social History Tobacco Use Types Packs/Day Years [...] encounter Miscellaneous Notes * Telephone Encounter - Kathy Green MA - 12/26/2024 12:56 PM EST Chart Prep Labs: done from 12/20/24 Images: done from 12/20/24 Referrals: Pain Medicine - Office will reach out to pt to book appointment. Vaccines due: Flu and HPV Screenings: Cervical cancer screening. LMP. Overdue care gaps: Tobacco documented in this encounter Plan of Treatment Upcoming Encounters Date Type Department Care Team (Late st Contact Info) Description 12/28/2024 10:00 AM EST Office Visit [facility] ADULT DENTAL [address] [place] [address] Lynn Cha DDS [address] [place] [address] 05/10/2025 9:30 AM EDT Office Visit [facility] ADULT DENTAL [address] [place] [address] Glenroy Kelley documented as of this encounter Visit Diagnoses Not on filedocumented in this encounter Additional Health Concerns Assessment Noted Time PHQ-9 Depression Total Score: 9 09/13/19 23 11:23 AM EDT documented as of this encounter Care Teams Stereoplotter Operator Relationship Specialty Start Date End Date Katty Spears NP [address] [place] [address] PCP - General Family Medicine 10/20/23 documented as of this encounter
--- OUTSIDE RECORDS SUMMARY | 2024-12-27 17:35 | XMS_ITS | Clinical Summary ---
Author Organization [employer] Address [address] [place] [address] Care Team Providers Care Chef De Partie Name Role Phone Katty Spears NP Primary Care Provider [phone] Allergies No known active allergies Medications acetaminophen [...] Active Problems Problem Noted Date Diagnosed Date Functional diarrhea 12/27/2024 Assessment & Plan (12/27/2024 3:35 PM EST): Orders: Helicobacter pylori Antigen, EIA, Stool; Future Referral to Gastroenterology; Future Chest pain 11/16/2024 Chronic frontal sinusitis 10/14/2024 [...] next one due 09/2024, she will call [facility] to schedule appointment. Eye exam: UTD, [...] Encounters Date Type Department Care Team Description 12/27/2024 3:30 PM EST Office Visit [address] [address] Katty Spears NP Functional diarrhea (Primary Dx); Encounter for immunization 12/27/2024 Travel 12/26/[address] [address] Ktaty Spaers NP Chart Prep 12/20/2024 Orders Only [facility] External Provider, [facility] 12/20/[address] [address] Katty Spears NP Results 11/23/2024 10:00 AM EDT Office Visit [facility] [address] [place] [address] Lynn Cha DDS 11/19/2024 Results Follow-Up [address] [address] Amandeep Giles MD XR Chest 2 Views, XR Lumbar Spine 2-3 Views 11/17/2024 Orders Only [facility] [address] [place] [phone] Amandeep Giles MD 11/16/2024 3:20 PM EDT Office Visit [facility] [address] [address] Amandeep Giles MD Chest pain, unspecified type (Primary Dx); Right leg numbness; Acute bilateral low back pain without sciatica; Essential hypertension 11/16/2024 Travel 11/16/[address] [address] Katty Spears NP Nurse Triage 11/09/2024 11:00 AM EDT Office Visit [facility] [address] [place] [address] Glenroy Kelley Dental calculus (Primary Dx) 10/14/2024 10:15 AM EDT Office Visit [address] [address] Katty Spears NP Chronic frontal sinusitis (Primary Dx); Visit for preventive health examination 10/14/2024 Travel 10/13/2024 Telephone [facility] [address] [place] [address] Marcin Washington [place] CHARTPREP 10/13/2024 Refill [facility] [address] [place], [place] [phone] Katty Spears NP 10/13/2024 Refill [facility] [address] [place], [place] [phone] Agatha Kelley MD Seasonal allergies 10/05/2024 1:30 PM EDT Office Visit [facility] [address] [place], [place] [phone] Hiram Ruiz DMD History of tooth extraction, unspecified edentulism class (Primary Dx) 10/03/2024 Telephone [facility] [address] [place], [place] [phone] Katty Spears NP Referral from Last 3 Months Immunizations Immunization Administration Dates Next Due DTaP 06/15/1992, 9,1987,1987,1987 Hep B, Adolescent or Pediatric 11/25/1999,1999,04/25/1999 Hib ([facility]) 03/30/1989 IPV 06/15/1992, 9,1987,1987 Influenza injectable quadriv alent IIV4 with preservative 12/14/2017,12/15/2014 Influenza injectable quadriv alent preservative free 11/08/2021,01/05/2020,11/17/2019,2018,11/27/2016,03/20/2016 Influenza, IIV3, injectable 02/20/2014 Influenza, seasonal, injecta ble, preservative free 12/27/2024,04/08/2024 MMR 10/02/1994,06/12/1988 PPD Test 03/25/2022 Pfizer Covid-19 Vaccine 12+ 04/08/2024, 1,09/05/2020 Pfizer Covid-19 Vaccine 12+ Bivalent 01/22/2022 Pfizer [...] Mass Index 23.83 12/27/2024 3:18 PM EST Plan of Treatment Upcoming Encounters Date Type Department Care Team (Late st Contact Info) Description 12/28/2024 10:00 AM EST Office Visit [facility] [address] [place] [address] Lynn Cha DDS [address] [place] [address] 05/10/2025 9:30 AM EDT Office Visit [facility] [address] [place] [address] Glenroy Kelley Health Maintenance Due Date Last Done Comments Family Planning (PISQ) 2002 HPV Vaccines (1 - 3-dose series) 2002 Cervical Cancer Screening 09/20/2024 HPV/Cotest 09/20/2024 09/21/2019 Pap Smear 09/20/2024 09/21/2019 Depression Monitoring 03/16/2025 09/13/2024, 023 Dental Oral Exam 05/10/2025 11/09/2024, , 10/30/2023, Additional history exists Dental Prophylaxis 05/10/2025 11/09/2024, 0 05/05/2024, 10/30/2023, Additional history exists Alcohol/Substance Use Screening 09/13/2025 09/13/2024 Disability Screening 09/13/2025 09/13/2024 SDOH Screening 09/13/2025 09/13/2024 Dental X-Ray: Bitewings 11/10/2025 11/10/19 25, 04/20/2024, 10/30/2023, Additional history exists Tobacco Screening 12/27/2025 12/27/2024 Dental X-Ray: Full Mouth 10/30/2026 024, 04/11/2016, [...] 05/11/2024, 07/16/2022 Hepatitis C Screening Completed 05/11/2024 Influenza Vaccine Completed 12/27/2024, , 11/08/2021, Additional history exists Hepatitis A Vaccines Aged Out No long [...] W CONTRAST Routine 12/20/2024 6:31 PM EST OBSX1 Routine 12/20/2024 6:28 PM EST URINALYSIS, COMPLETE, WITH REFLEX TO [...] PM EST Narrative 12/20/2024 6:33 PM EST [place] [address] [address] Scan Report Signed Patient: Becca Espinoza MR#: [id number] : 1985 Acct:[id number] Age/Sex: 39 / F ADM Date: 12/20/24 Loc: .ED Attending Dr: Ordering Physician: Favio Marshall Date of Service: 12/20/24 Procedure(s): CT abdomen pelvis w IV con Accession Number(s): [id number] cc: Katty Spears NP; Favio Marshall Report Number: [id number]: Total DLP = 400.00 mGy-cm Reason for [...] signed by Bautista Heath MD in OV> 12/20/24 183 DD/ 183 TD/TT: 12/20/24 183 Repeater Operator: Procedure Note Donotuseinterpreter, Image - 12/20/[address] [place] [address] [address] Scan Report Signed Patient: Meryl Espinoza#: [id number] : 1985Acct:[id number] Age/Sex: 39 / FADM Date: 12/20/24 Loc: HO.ED Attending Dr: Ordering Physician: Favio Marshall Date of Service: 12/20/24 Procedure(s): CT abdomen pelvis w IV con Accession Number(s): [id number] cc: Katty Spears NP; Favio Marshall Report Number: [id number]: Total DLP = 400.00 mGy-cm Reason for [...] signed by Bautista Heath MD in OV> 12/20/24 183 DD/ 183 TD/TT: 12/20/24 183 Repeater Operator: [facility] External Provider IMG CT PROCEDURES Final Result * OBSX1 (12/20/2024 6:28 PM EST) Pathologist [facility] [place] OBS1 NEGATIVE NEGATIVE [facility] 12/20/2024 6:28 PM EST 12/20/2024 6:32 PM EST Generic External Data Provider LAB BLOOD ORDERAB LES Final Result [facility] [address] [place] [phone] * (ABNORMAL) Urinalysis, Complete, with Reflex to Culture (12/20/2024 5:53 PM EST) Pathologist [facility] [place] Color Urine Yellow [facility] Appearance Urine Cloudy [facility] PH 7.0 5.0 - 9.0 [facility] Glucose Urine UA Negative Negative mg/dL [facility] Urine Blood Trace(A) Negative [facility] Specific [place] - Urine 1.020 1.005 - 1.025 [facility] Urine Protein Negative Neg-Trace mg/dL [facility] Urine Ketones Negative Negative mg/dL [facility] Nitrite Urine Negative Negative [facility] Leukocyte Esterase Urine Negative Negative [facility] RBC Urine 6-10(A) 0 - 2 /HPF [facility] Urine WBC 0-5 0 - 5 /HPF [facility] Urine Squamous Epithelial Cell 6-10 0 - 2 /HPF [facility] Urine Bacteria 1+ None Seen [facility] Hyaline Casts, Urine 0-2 0 - 2 /LPF [facility] 12/20/2024 5:53 PM EST 12/20/2024 6:03 PM EST Narrative [facility] - 12/20/2024 6:11 PM EST [id number], Clean Catch us Generic External Data Provider LAB URINE ORDERAB LES Final Result Performing Organization Address City/State/[facility] Co de Phone Number [facility] [address] [place] [phone] * (ABNORMAL) CBC auto differential (12/20/2024 11:50 AM EST) White Blood Count 6.3 4.8 - 10.8 X10*3/uL [facility] Red Blood Count 4.23 4.20 - 5.50 X10*6/uL [facility] Hemoglobin 11.9(L) 12.0 - 16.0 g/dl [facility] Hematocrit 36.9(L) 37.0 - 47.0 % [facility] Mean Corpuscular Volume 87.2 80.0 - 98.0 fL [facility] Mean Corpuscular Hemoglobin 28.1 27.0 - 33.0 pg [facility] Mean Corpuscular HGB Conc 32.2 31.0 - 35.0 g/dl [facility] Red Cell Distribution Width 13.1 11.0 - 16.0 % [facility] Platelet Count 260 160 - 400 X10*3/uL [facility] Mean Platelet Volume 9.0(L) 9.4 - 12.3 fL [facility] Neutrophils Percent Auto 64.0 45 - 73 % [facility] Imm Gran Pct Auto 0.3 0.0 - 0.4 % [facility] Lymphocytes Percent Auto 29.1 20 - 40 % [facility] Monocytes Percent Auto 5.5 2 - 11 % [facility] Eosinophils Percent Auto 0.8 0 - 4 % [facility] Basophils Percent Auto 0.3 0 - 2 % [facility] NRBC Pct Auto 0.0 0.0 - 0.2 /100WBC [facility] Neutrophils Absolute Auto 4.0 2.0 - 8.3 x10*3/uL [facility] Imm Gran Abs Auto 0.02 0.00 - 0.03 X10*3/uL [facility] Lymphocytes Absolute Auto 1.8 1.2 - 4.9 X10*3/uL [facility] Monocytes Absolute Auto 0.4 0.1 - 1.2 X10*3/uL [facility] Eosinophils Absolute Auto 0.1 0.0 - 0.4 X10*3/uL [facility] Basophils Absolute Auto 0.0 0.0 - 0.2 X10*3/uL [facility] NRBC Abs Auto 0.000 0.0 - 0.012 X10*3/uL [facility] 12/20/2024 11:5 0 AM EST 12/20/2024 11:53 AM EST us Generic External Data Provider LAB BLOOD ORDERAB LES Final Result [facility] [address] [place] [phone] * Prothrombin Time-INR (12/20/2024 11:50 AM EST) Prothrombin Time 12.1 10.9 - 12.4 SEC [facility] INTERNATIONAL NORM RATIO 1.1 0.9 - 1.1 [facility] Comment:INTERNATIONAL NORMAL IZED RATIO (INR) REFERENCE [...] ORDERAB LES Final Result Performing Organization Address City/State/[facility] de Phone Number [facility] [address] [place] [phone] * hCG, Total, Quantitative (12/20/2024 11:50 AM EST) HCG Quantitative <2 mIU/mL [facility] Comment:Weeks post LMP Appro ximate hCG(Last Menstrual Period) Range (mIU/ml)3 - 4 weeks 9 - 1304 - 5 weeks 75 - 2,6005 - 6 weeks 850 - 20,8006 - 7 weeks 4000 - 100,2007 - 12 weeks 11,500 - 289,52386 - 16 weeks 18,300 - 137,52262 - 29 weeks (2nd trimester) 1,400 - 53,65189 - 41 weeks (3rd trimester) 940 - 60,000The Fu B- hCG assay is used for the early detection ofpregnancy; it cannot be used to diagnose any conditionunrelated to . If a B-hCG level is not supportedby the clinical evidence, results should be confirmed by analternative method (qualitative urine hCG, for example). 12/20/2024 11:5 0 AM EST 12/20/2024 11:53 AM EST us Generic External Data Provider LAB BLOOD ORDERAB LES Final Result [facility] [address] [place] [phone] * (ABNORMAL) Comprehensive Metabolic Panel (12/20/2024 11:50 AM EST) Sodium 141 135 - 145 mmol/L [facility] Potassium 3.4 3.3 - 5.1 mmol/L [facility] Chloride 105 96 - 108 mmol/L [facility] Carbon Dioxide 30(H) 22 - 29 mmol/L [facility] Anion Gap 9(L) 12 - 20 [facility] Urea Nitrogen (BUN) 10 9 - 16 mg/dL [facility] Creatinine, Serum 0.68 0.5 - 1.4 mg/dL [facility] Creatinine Clr Calc Pharmacy 101.9 [facility] Comment:Provided height and weight: 165.1 cm,65.9 kg.eGFR (calculated from the MDRD study equation) and eCrCl(calculated from the Cockcroft-Gault equation) are based ondifferent parameters and may not yield comparable results.If eCrCl result is absurd, please check patient'sheight/weight. Estimated Glomerular Filt Rate >60 [facility] Comment:Chronic Kidney Disea se: Estimated GFR < 60 mL/min/1.54h9Kyhkrd Kidney Disease: Estimated GFR < 15 mL/min/1.73m2 Glucose 116(H) 60 - 115 mg/dL [facility] Calcium 9.2 8.4 - 10.2 mg/dL [facility] Bilirubin, Total 0.6 0.0 - 1.0 mg/dL [facility] Aspartate Amino Transferase 22 5 - 31 U/L [facility] Alanine Aminotransferase 14 0 - 31 U/L [facility] Total Protein 7.6 6.5 - 8.0 g/dL [facility] Albumin Level 4.3 3.5 - 5.0 g/dL [facility] Alkaline Phosphatase 72 39 - 117 U/L [facility] 12/20/2024 11:5 0 AM EST 12/20/2024 11:53 AM EST us Generic External Data Provider LAB BLOOD ORDERAB LES Final Result [facility] [address] [place] [phone] * XR Chest 2 Views (11/17/2024 11:57 AM EDT) Anatomical Region Laterality Modality Chest Radiographic Melany ging 11/17/2024 11:5 7 AM EDT Narrative 11/17/2024 12:18 PM EDT [address] [address] XRay Report Signed Patient: Becca Espinoza MR#: [id number] : 1985 Acct:[id number] Age/Sex: 39 / F ADM Date: 11/17/24 Loc: FLAKITA Attending Dr: Amandeep Giles MD Ordering Physician: AMANDEEP GILES MD Date of Service: 11/17/24 Procedure(s): XR chest 2V Accession Number(s): [id number] cc: AMANDEEP GILES MD; Katty Spears NP [...] 11/17/24 1215 DD/ 1157 TD/TT: 11/17/24 1203 Repeater Operator: Procedure Note Donotuseinterpreter, Image - 11/17/[address] [address] XRay Report Signed Patient: Kate EspinozaR#: [id number] : 1985Acct:[id number] Age/Sex: 39 / FADM Date: 11/17/24 Loc: HO.XRAY Attending Dr: Amandeep Giles MD Ordering Physician: AMANDEEP GILES MD Date of Service: 11/17/24 Procedure(s): XR chest 2V Accession Number(s): [id number] cc: AMANDEEP GILES MD; Katty Spears NP [...] 11/17/24 1215 DD/ 1157 TD/TT: 11/17/24 1203 Repeater Operator: Amandeep Giles MD IMG XR PROCEDURES Edited Result - Final * XR Lumbar Spine 2-3 Views (11/17/2024 11:52 AM EDT) Anatomical Region Laterality Modality Spine, L-spine Radiographic Melany ging 11/17/2024 11:5 2 AM EDT Narrative 11/23/2024 9:49 AM EDT [address] [address] XRay Report Signed Patient: Becca Espinoza MR#: [id number] : 1985 Acct:[id number] Age/Sex: 39 / F ADM Date: 11/17/24 Loc: HO.XRAY Attending Dr: Amandeep Giles MD Ordering Physician: AMANDEEP GILES MD Date of Service: 11/17/24 Procedure(s): XR lumbar spine 2-3V Accession Number(s): [id number] cc: AMANDEEP GILES MD; Katty Spears NP [...] signed by Jeet Hurtado MD in OV> 11/23/24 0946 DD/ 1152 TD/TT: 11/17/24 1203 Repeater Operator: Procedure Note Donotuseinterpreter, Image - 11/23/[address] [address] XRay Report Signed Patient: Meryl Espinoza#: [id number] : 1985Acct:[id number] Age/Sex: 39 / FADM Date: 11/17/24 Loc: FLAKITA Attending Dr: Amandeep Giles MD Ordering Physician: AMANDEEP GILES MD Date of Service: 11/17/24 Procedure(s): XR lumbar spine 2-3V Accession Number(s): [id number] cc: AMANDEEP GILES MD; Katty Spears NP [...] Jeet Hurtado MD 11/23/2024 09:46 AM EDT RP Dictated By: Jeet Hurtado MD Signed By: <Electronically signed by Jeet Hurtado MD in OV> 11/23/24 0946 DD/ 1152 TD/TT: 11/17/24 1203 Repeater Operator: SHIRA Amandeep Giles MD IMG XR PROCEDURES Final Result * D Dimer High Sensitivity (11/17/2024 11:41 AM EDT) D Dimer High Sensitivity <150 NG/ML [facility] Comment:D-DIMER HS REFERENCE RANGENote: Our assay [...] MD LAB BLOOD ORDERABLES Final Resul t [facility] [address] [place] [phone] * ECG 12 lead (11/16/2024 5:11 [...] normal Q waves: Abnormal Q-waves: not present us Amandeep Giles MD ECG ORDERABLES Final Result * Hepatitis Panel, General (05/11/2024 9:33 AM EDT) Pathologist [facility] [place] Hepatitis A IgM Nonreactive Nonreactive [facility] Comment:IgM antibodies to POWERS V not detected; does not exclude earlyacute or recovered HAV infection. ~Hepatitis B Surface Antibody REACTIVE Nonreactive [facility] Comment:REACTIVE: > 11.99 mI U/mL Hepatitis B Core Antibody Nonreactive Nonreactive [facility] Hepatitis C Antibody Nonreactive Nonreactive [facility] Comment:Antibodies to HCV no t detected; does not exclude early acuteHCV infection. Hepatitis B Surface Ag Negative Negative [facility] Blood 05/11/2024 9:33 AM EDT 05/11/2024 11:06 AM EDT us Mimi Huston MD LAB BLOOD ORDERABLES Fin al Result [facility] [address] [place] [phone] * HIV-1/2 Antigen and Antibodies, Fourth Generation, with Reflexes (05/11/2024 9:33 AM EDT) Pathologist [facility] [place] HIV AB/AG Nonreactive Nonreactive [facility] Comment:HIV-1 p24 Ag and/or HIV-1/HIV-2 Ab not detected.A test result that is nonreactive does not exclude thepossibility of exposure to or infection with HIV-1 and/orHIV-2. Nonreactive results in this assay for individualswith prior exposure to HIV-1 and/or HIV-2 may be due toantigen and antibody levels that are below the limit ofdetection of this assay.The [employer] HIV Ag/Ab Combo assay result andsupplemental assay results should be interpreted inconjunction with the patient's clinical presentation,history and other laboratory results. If the results areinconsistent with clinical evidence, additional testing issuggested to confirm the result. Blood Venous blood specimen / Unknown 05/11/2024 9:33 AM EDT 05/11/2024 11:06 AM EDT us Mimi Huston MD LAB BLOOD ORDERABLES Fin al Result [facility] [address] [place] [phone] * Lipid Panel with Reflex to Direct LDL (05/11/2024 9:30 AM EDT) Triglycerides 114 <150 mg/dL [facility] Comment:Desirable Triglyceri de: less than 150 mg/dLBorderline High Triglyceride 150-199 mg/dLHigh Triglyceride: 200-499 mg/dLVery High Triglyceride: greater than or equal to 5OO mg/dL Cholesterol 172 <200 mg/dL [facility] Comment:Desirable Cholestero l: less than 200 mg/dLBorderline High Cholesterol: 200-239 mg/dLHigh Cholesterol: greater than 239 mg/dL LDL Cholesterol Calculated 98 <100 mg/dL [facility] Comment:Desirable LDL: less than 100 mg/dLNear Optimal/Above Optimal LDL: 110- 129 mg/dLBorderline High LDL: 130-159 mg/dLHigh LDL: 160-189 mg/dLVery High LDL: greater than or equal to 190 mg/dL HDL Cholesterol 52 >40 mg/dL [facility] Comment:Desirable HDL: great er than 40 mg/dL Note: This HDL assay may give artificially low results in patients with liver disease. Blood 05/11/2024 9:30 AM EDT 05/11/2024 11:06 AM EDT Mimi Huston MD LAB BLOOD ORDERABLES Fin al Result [facility] [address] [place] [phone] * Pap Smear (09/21/2019) Pap Negative for intraephithelial lesion or malignancy Negative for intraephithelial lesion or malignancy, Other HPV Undetected Undetected, Indeterminate, Quantitative, Not Detected Historical Provider HEALTH MAINTENANCE Final Result from Last 3 Months or Most Recently Relevant to Health Maintenance Insurance [facility] C3 DENTAL-[facility] MEDICAID STAND ADULT Care Teams Chef De Partie Relationship Specialty Start Date End Date Katty Spears NP [address] [place] [phone] PCP - General Family Medicine 10/20/23
== END 2024-12-27 17:33 | disposition home or self-care (01) ==
LOC: HO.HHCLNP 17:32
PROVIDERS: Visit Provider Nurse Practitioner Family
DX: K59.1 Functional diarrhea (principal)
CPT/HCPCS: 83013